=== PATIENT | female | born 1940 | race Caucasian/White ===

== ENCOUNTER 2018-05-06 09:14 | Inpatient (IN) | payer MEDICARE, OTHER ==
[2018-05-06] MEDS ORDERED: Sodium Chloride 0.45% 1,000 ML IV ONE (09:53)
[2018-05-06 10:01] LABS: % BASOPHILS 1.2 % (0.0-2.0); % EOSINOPHILS 0.2 % (0.0-5.0); % LYMPHOCYTES 13.1 % (20.0-50.0); % MONOCYTES 12.6 % (2.0-10.0); % NEUTROPHILS 72.9 % (40.0-80.0); BASOPHILE ABSOLUTE 0.1 Th/cumm (0-0.2); HEMATOCRIT 45.7 % (41.0-60); HEMOGLOBIN 15.2 gm/dL (12-16); LYMPHOCYTE ABSOLUTE 1.1 Th/cmm (1.5-3.0); MEAN CELL VOLUME 93.4 fl (81-100); MEAN CORPUSCULAR HGB CONC 33.2 pg (28.0-36.0); MEAN PLATELET VOLUME 10.9 fl; MONOCYTE ABSOLUTE 1.1 Th/cmm (0.3-1.0); NEUTROPHILE ABSOLUTE 6.4 Th/cmm (1.8-8.0); PLATELET COUNT 111 Th/cmm (150-400); RED BLOOD COUNT 4.89 Mil/cmm (3.80-5.20); RED CELL DISTRIBUTION WIDTH 15.9 % (11.5-20.0); WHITE BLOOD COUNT 8.7 Th/cmm (4.8-10.8)
[2018-05-06 10:12] LABS: INR 1.4 (0.5-1.4); PROTHROMBIN TIME (TEST) 14.8 SECONDS (9.5-11.5)
[2018-05-06 10:17] LABS: ALB/GLOB RATIO 1.5 (1.0-1.8); ALBUMIN 3.8 gm/dL (3.7-5.3); ALKALINE PHOSPHATASE 203 U/L (34-104); ANION GAP 16.7 (7.0-16.0); BILIRUBIN,TOTAL 2.3 mg/dL (0.3-1.0); BUN - UREA NITROGEN 29 mg/dL (7-25); CALCIUM SERUM 9.8 mg/dL (8.6-10.3); CARBON DIOXIDE 19.7 mEq/L (21.0-31.0); CHLORIDE 102 mEq/L (98-107); CREATININE - SERUM 1.1 mg/dL (0.6-1.2); GLUCOSE 90 mg/dL (70-105); POTASSIUM SERUM 4.4 mEq/L (3.5-5.1); SGOT 40 U/L (13-39); SGPT/ALT 33 U/L (7-52); SODIUM SERUM 134 mEq/L (136-145); TOTAL PROTEIN,SERUM 6.3 gm/dL (6.0-8.3)
--- NOTE | 2018-05-06 10:30 | Diagnostic Imaging Report ---
Portable chest x-ray HISTORY: Pain The heart is enlarged. Density noted in the left and to a lesser degree right lower hemithoracic regions consistent bilateral pleural effusions. Atherosclerotic calcification seen in the aorta. Degenerative changes noted throughout the spine. IMPRESSION: 1. Cardiomegaly with bilateral pleural effusions. Findings may be associated with congestive heart failure. Pneumonia cannot be excluded. Clinical correlation is needed.
--- NOTE | 2018-05-06 10:38 | ED Physician Chart ---
ED Chief Complaint/HPI - Patient Information Date Seen:: 05/06/18 Time Seen:: 10:00 Chief Complaint:: ALTERED History of Present Illness:: THIS IS A CHRONICALLY ILL 78 YO FEMALE BIB HER FAMILY FROM HOME WITH A HISTORY OF A STROKE, AFIB, CHF AND CAROTID ARTERY DISEASE. Allergies:: Allergies Allergy/AdvReac Type Severity Reaction Status Date / Time No Known Allergies Allergy Verified 05/06/18 09:44 Vitals:: Vital Signs - 8 hr 05/06/18 09:23 Temp 98.8 F HR 88 RR 20 BP 133/62 O2 Sat % 90 Historian:: Patient, Family Member (SON AND DAUGHTER) Review:: Nurse's Note Reviewed ED Review of Systems - Review of Systems General/Constitutional: No fever, No chills, No weight loss, No weakness, No diaphoresis, No edema, No loss of appetite, Other (THIS PATIENT IS NOT ABLE TO GIVE A REVIEW OF SYSTEMS.) Skin: No skin lesions, No rash, No bruising Head: No headache, No light-headedness Eyes: No loss of vision, No pain, No diplopia ENT: No earache, No nasal drainage, No sore throat, No tinnitus Neck: No neck pain, No swelling, No thyromegaly, No stiffness, No mass noted Cardio Vascular: No chest pain, No palpitations, No PND, No orthopnea, No edema Pulmonary: No SOB, No cough, No sputum, No wheezing GI: No nausea, No vomiting, No diarrhea, No pain, No melena, No hematochezia, No constipation, No hematemesis G/U: No dysuria, No frequency, No hematuria Musculoskeletal: No bone or joint pain, No back pain, No muscle pain Endocrine: No polyuria, No polydipsia Psychiatric: No prior psych history, No depression, No anxiety, No suicidal ideation Hematopoietic: No bruising, No lymphadenopathy Allergic/Immuno: No urticaria, No angioedema Neurological: No syncope, No focal symptoms, No weakness, No paresthesia, No headache, No seizure, No dizziness, No confusion, No vertigo ED Past Medical History - Past Medical History Obtainable: Yes Past Medical History: HTN, CAD, CHF, CVA/TIA, Dyslipidemia Family History: None Social History: Non Smoker, No Alcohol, No Drug Use, Surgical History: other (LEFT UPPER EXTREMITY SURGERY) ED Physical Exam - Physical Examination General/Constitutional: Awake, Well-developed, well-nourished, Alert, No distress, GCS 15, Non-toxic appearing, Ambulatory Other Gen/Cons comments:: ORIENTED BUT LETHARGIC Head: Atraumatic Eyes: Lids, conjuctiva normal, PERRL, EOMI Skin: Nl inspection, No rash, No skin lesions, No ecchymosis, Well hydrated, No lymphadenopathy ENMT: External ears, nose nl, Nasal exam nl, Lips, teeth, gums nl Neck: Nontender, Full ROM w/o pain, No JVD, No nuchal rigidity, No bruit, No mass, No stridor Respiratory: Nl effort/Exclusion, Clear to Auscultation, No Wheeze/Rhonchi/ Rales (BILATERAL RALES WITH INCREASE RESPIRATORY RATE.) Cardio Vascular: RRR, No murmur, gallop, rubs, NL S1 S2 Other Cardio Vascular comments:: TACHYCARDIA GI: No tenderness/rebounding/guarding, No organomegaly, No hernia, Normal BS's, Nondistended, No mass/bruits, No McBurney tenderness : No CVA tenderness Extremities: No tenderness or effusion, Full ROM, normal strength in all extremities, No edema, Normal digits & nails Neuro/Psych: Alert/oriented, DTR's symmetric, Normal sensory exam, Normal motor strength, Judgement/insight normal, Mood normal, Normal gait, No focal deficits Misc: Normal back, No paraspinal tenderness ED Labs/Radiology/EKG Results - Lab Results Results: Laboratory Tests 05/06/18 05/06/18 05/06/18 09:42 09:42 09:42 WBC 8.7 RBC 4.89 Hgb 15.2 Hct 45.7 MCV 93.4 MCH 31.0 MCHC Differential 33.2 RDW 15.9 Plt Count 111 L MPV 10.9 Neutrophils % 72.9 Lymphocytes % 13.1 L Monocytes % 12.6 H Eosinophils % 0.2 Basophils % 1.2 PT 14.8 H INR 1.40 PTT (Actin FS) 32.3 Sodium 134 L Potassium 4.4 Chloride 102 Carbon Dioxide 19.7 L Anion Gap 16.7 H BUN 29 H Creatinine 1.1 Est GFR ( Amer) TNP Est GFR (Non-Af Amer) TNP BUN/Creatinine Ratio 26.4 Glucose 90 Calcium 9.8 Total Bilirubin 2.3 H AST 40 H ALT 33 Alkaline Phosphatase 203 H Troponin I Total Protein 6.3 Albumin 3.8 Globulin 2.5 Albumin/Globulin Ratio 1.5 05/06/18 09:42 WBC RBC Hgb Hct MCV MCH MCHC Differential RDW Plt Count MPV Neutrophils % Lymphocytes % Monocytes % Eosinophils % Basophils % PT INR PTT (Actin FS) Sodium Potassium Chloride Carbon Dioxide Anion Gap BUN Creatinine Est GFR ( Amer) Est GFR (Non-Af Amer) BUN/Creatinine Ratio Glucose Calcium Total Bilirubin AST ALT Alkaline Phosphatase Troponin I 0.13 H* Total Protein Albumin Globulin Albumin/Globulin Ratio ED Assessment - Assessment General Assessment: BILATERAL PLEURAL EFFUSION CHF STATUS POST CVA ED Septic Shock - . Is Septic Shock (SBP<90, OR Lactate>4 mmol\L) present?: No - <6hrs of presentation: Vital Signs: Vital Signs - 8 hr 05/06/18 09:23 Temp 98.8 F HR 88 RR 20 BP 133/62 O2 Sat % 90 ED Reassessment (Disposition) - Reassessment Reassessment Condition:: Improved - Diagnosis Diagnosis:: BILATERAL PLEURAL EFFUSION CHF ELEVATION OF TROPONIN - Patient Disposition Discharge/Transfer:: Acute Care w/in this hosp Admitted to:: Telemetry Admitting Medical Physician:: Ash Puri Condition at Disposition:: Improved ED Discharge Plan - Patient Disposition Admit/Discharge/Transfer: Acute Care w/in this hosp Condition at Disposition: Improved
[2018-05-06] MEDS ORDERED: Albuterol/Ipratropium Neb 3 ML AERS HHN ONE (11:36)
[2018-05-06] MEDS: Albuterol/Ipratropium Neb 3 ML AERS HHN SCH ×3 (11:37→18:36)
--- NOTE | 2018-05-06 11:45 | Diagnostic Imaging Report ---
CT scan of the brain without intravenous contrast HISTORY: Stroke, CVA Total DLP equals 725 CTDI equals 38.9 Axial sections were obtained from the base of the skull the vertex. There is enlargement of the ventricular system along with enlargement of cerebral sulci and subarachnoid cisterns reflecting atrophy. Hypodensity seen within the supratentorial white matter regions that may reflect chronic small vessel ischemic disease. Somewhat more pronounced encephalomalacia noted within the temporal lobe areas. No acute parenchymal abnormalities. No intracerebral hemorrhage. No mass effect or shift of midline structures. No extra-axial masses or abnormal fluid collections. IMPRESSION: 1. Limited exam due to difficulty in patient positioning and extensive artifact associated with metallic dental hardware. 2. No definite acute abnormalities 3. Cerebral atrophy 4. Supratentorial white matter changes that may reflect chronic small vessel ischemic disease
[2018-05-06] MEDS ORDERED: Non-Formulary Item 1 EA (Apixaban [Eliquis] 5 MG) PO SCH (17:00)
[2018-05-06] MEDS: Atorvastatin Calcium 10 MG TAB PO SCH (20:09)
--- NOTE | 2018-05-06 20:59 | History & Physical ---
ADMIT DATE: 05/06/2018 CHIEF COMPLAINT: Multiple fall and shortness of breath. HISTORY OF PRESENT ILLNESS: The patient is an 78-year-old female with long history of hypertension, congestive heart failure, and asthma. She lives at home and presented to the Emergency Room with multiple falls and shortness of breath. Initial workup is significant for acute exacerbation of CHF and left elbow trauma. Denies any chest pain, nausea, or vomiting. PAST MEDICAL HISTORY: Hypertension, congestive heart failure, degenerative joint disease, and asthma. PAST SURGICAL HISTORY: No recent surgery. ALLERGIES: She has no history of allergies. SOCIAL HISTORY: No smoking, no alcohol, and no drugs. FAMILY HISTORY: Noncontributory. REVIEW OF SYSTEMS: RENAL SYSTEM: No history of chronic renal disorder. CARDIOVASCULAR SYSTEM: No coronary artery disease. ENDOCRINE SYSTEM: No diabetes or thyroid problem. GASTROINTESTINAL SYSTEM: No upper or lower gastrointestinal bleed. NEUROLOGICAL: She has history of stroke. PHYSICAL EXAMINATION: GENERAL: She is awake, alert, and oriented. VITAL SIGNS: Temperature 98.8, heart rate 69, and blood pressure 123/70. HEENT: Normocephalic. Pupils are reactive to light and accommodation. Sclerae clear. NECK: Supple. Negative for lymphadenopathy, JVD, or bruit. CHEST: Bilaterally normal. No rhonchi or wheezing. HEART: S1 and S2 normal. No gallop rhythm. ABDOMEN: Soft, bowel sounds positive. EXTREMITIES: No edema. Significant for multiple trauma to the left elbow. NEUROLOGICAL: She is awake, alert, and oriented. No focal motor or sensory deficits. Cranial nerves 2-12 are intact. LABORATORY DATA: White blood cell 8.7, hemoglobin 15.2, hematocrit 45.7, and platelet 111. Sodium 134, potassium 4.4, BUN 29, and creatinine ____. Troponin 0.13. ASSESSMENT: 1. Multiple falls. 2. Soft tissue trauma to the left elbow. 3. Acute exacerbation of congestive heart failure. 4. Chronic atrial fibrillation. 5. Degenerative joint disease. 6. Hypertension. PLAN: The patient admitted to the hospital under Dr. Puri's service, started on cardiac diet, resume her medication IV Lasix. Troponin in a.m. Chem-7 a.m. The patient is a full code. JOB# [id number]
[2018-05-07] MEDS: Albuterol/Ipratropium Neb 3 ML AERS HHN SCH ×4 (02:36→19:10)
[2018-05-07 04:42] LABS: ALB/GLOB RATIO 1.3 (1.0-1.8); ALBUMIN 3.2 gm/dL (3.7-5.3); ALKALINE PHOSPHATASE 170 U/L (34-104); ANION GAP 12.2 (7.0-16.0); BILIRUBIN,TOTAL 1.4 mg/dL (0.3-1.0); BUN - UREA NITROGEN 32 mg/dL (7-25); CALCIUM SERUM 9.4 mg/dL (8.6-10.3); CARBON DIOXIDE 23.7 mEq/L (21.0-31.0); CHLORIDE 104 mEq/L (98-107); CREATININE - SERUM 1.1 mg/dL (0.6-1.2); GLUCOSE 118 mg/dL (70-105); POTASSIUM SERUM 3.9 mEq/L (3.5-5.1); SGOT 29 U/L (13-39); SGPT/ALT 28 U/L (7-52); SODIUM SERUM 136 mEq/L (136-145); TOTAL PROTEIN,SERUM 5.7 gm/dL (6.0-8.3)
[2018-05-07] MEDS: Potassium Chloride 10 mEq ER Tab PO SCH (08:42)
[2018-05-07] MEDS ORDERED: LOSARTAN PO SCH (09:00)
[2018-05-07] MEDS ORDERED: HYDROCHLOROTHIAZIDE PO SCH (09:00)
[2018-05-07] MEDS ORDERED: [UNRECOGNIZED DRUG - OTHER] PO SCH (09:00)
--- NOTE | 2018-05-07 15:48 | Internal Medicine Prog Note ---
Internal Medicine Subjective - Subjective Service Date: 05/07/18 Patient seen and examined:: with staff Patient is:: awake, in bed, talking Patient Complaints of:: SOB Per staff patient has:: no adverse event Internal Medicine Objective - Results Result Diagrams: 05/06/18 09:42 05/07/18 04:05 Recent Labs: Laboratory Last Values WBC 8.7 Th/cmm (4.8-10.8) 05/06/18 09:42 RBC 4.89 Mil/cmm (3.80-5.20) 05/06/18 09:42 Hgb 15.2 gm/dL (12-16) 05/06/18 09:42 Hct 45.7 % (41.0-60) 05/06/18 09:42 MCV 93.4 fl (81-100) 05/06/18 09:42 MCH 31.0 pg (27.0-31.0) 05/06/18 09:42 MCHC Differential 33.2 pg (28.0-36.0) 05/06/18 09:42 RDW 15.9 % (11.5-20.0) 05/06/18 09:42 Plt Count 111 Th/cmm (150-400) L 05/06/18 09:42 MPV 10.9 fl 05/06/18 09:42 Neutrophils % 72.9 % (40.0-80.0) 05/06/18 09:42 Lymphocytes % 13.1 % (20.0-50.0) L 05/06/18 09:42 Monocytes % 12.6 % (2.0-10.0) H 05/06/18 09:42 Eosinophils % 0.2 % (0.0-5.0) 05/06/18 09:42 Basophils % 1.2 % (0.0-2.0) 05/06/18 09:42 PT 14.8 SECONDS (9.5-11.5) H 05/06/18 09:42 INR 1.40 (0.5-1.4) 05/06/18 09:42 PTT (Actin FS) 32.3 SECONDS (26.0-38.0) 05/06/18 09:42 Sodium 136 mEq/L (136-145) 05/07/18 04:05 Potassium 3.9 mEq/L (3.5-5.1) 05/07/18 04:05 Chloride 104 mEq/L (98-107) 05/07/18 04:05 Carbon Dioxide 23.7 mEq/L (21.0-31.0) 05/07/18 04:05 Anion Gap 12.2 (7.0-16.0) 05/07/18 04:05 BUN 32 mg/dL (7-25) H 05/07/18 04:05 Creatinine 1.1 mg/dL (0.6-1.2) 05/07/18 04:05 Est GFR ( Amer) TNP 05/07/18 04:05 Est GFR (Non-Af Amer) TNP 05/07/18 04:05 BUN/Creatinine Ratio 29.1 05/07/18 04:05 Glucose 118 mg/dL (70-105) H 05/07/18 04:05 Calcium 9.4 mg/dL (8.6-10.3) 05/07/18 04:05 Total Bilirubin 1.4 mg/dL (0.3-1.0) H 05/07/18 04:05 AST 29 U/L (13-39) 05/07/18 04:05 ALT 28 U/L (7-52) 05/07/18 04:05 Alkaline Phosphatase 170 U/L (34-104) H 05/07/18 04:05 Troponin I 0.16 ng/mL (0.01-0.05) H* D 05/07/18 04:05 B-Natriuretic Peptide 946.0 pg/mL (5.0-100.0) H 05/07/18 04:30 Total Protein 5.7 gm/dL (6.0-8.3) L 05/07/18 04:05 Albumin 3.2 gm/dL (3.7-5.3) L 05/07/18 04:05 Globulin 2.5 gm/dL 05/07/18 04:05 Albumin/Globulin Ratio 1.3 (1.0-1.8) 05/07/18 04:05 TSH 5.21 uIU/ml (0.34-5.60) 05/06/18 09:42 - Physical Exam Vitals and I&O: Vital Signs Temp 97 F 05/07/18 12:00 Pulse 85 05/07/18 13:56 Resp 18 05/07/18 13:56 BP 130/64 05/07/18 12:00 Pulse Ox 100 05/07/18 13:56 Intake & Output 05/06/18 05/07/18 05/07/18 18:59 06:59 18:59 Intake Total 1250 100 Balance 1250 100 Weight (lbs) 64.41 kg 64.41 kg Intake: Intake, IV Amount 500 Oral 750 100 Other: # Voids 2 2 Weight Source Bedscale Bedscale Active Medications: Current Medications Albuterol/Ipratropium (Duoneb Neb) 3 ml HHN Q6HRT SEE Stop: 07/05/18 12:59 Last Admin: 05/07/18 13:56 Dose: 3 ml Atorvastatin Calcium (Lipitor) 20 mg PO HS SEE Stop: 07/05/18 20:59 Last Admin: 05/06/18 20:09 Dose: 20 mg Escitalopram Oxalate (Lexapro) 10 mg PO DAILY [facility]; Protocol Stop: 07/06/18 08:59 Last Admin: 05/07/18 08:42 Dose: 10 mg Furosemide (Lasix) 20 mg IVP Q12HR SEE Stop: 07/06/18 08:59 Last Admin: 05/07/18 08:45 Dose: 20 mg Hydrochlorothiazide (Hctz) 12.5 mg PO DAILY [facility] Stop: 07/06/18 08:59 Last Admin: 05/07/18 08:45 Dose: 12.5 mg Losartan Potassium (Cozaar) 50 mg PO DAILY SEE Stop: 07/06/18 08:59 Last Admin: 05/07/18 08:43 Dose: 50 mg Memantine (Namenda) 10 mg PO BID [facility] Stop: 07/05/18 16:59 Last Admin: 05/07/18 08:42 Dose: 10 mg Metoprolol Tartrate (Lopressor) 25 mg PO BID [facility] Stop: 07/05/18 16:59 Last Admin: 05/07/18 08:45 Dose: 25 mg Nitroglycerin (Nitrostat) 0.4 mg SL Q5MIN PRN PRN Reason: Chest Pain Stop: 07/05/18 16:25 Potassium Chloride (Klor-Con) 10 meq PO DAILY SEE Stop: 07/06/18 08:59 Last Admin: 05/07/18 08:42 Dose: 10 meq Rivaroxaban (Xarelto) 15 mg PO DAILY@1700 SEE Stop: 07/05/18 16:59 Last Admin: 05/06/18 17:19 Dose: 15 mg General: alert HEENT: NC/AT, PERRLA, EOMI, anicteric sclerae, throat clear Neck: Supple, No JVD, No thyromegaly, +2 carotid pulse wo bruit, No LAD Lungs: CTAB Cardiovascular: Normal S1, Normal S2 Abdomen: non-tender, non-distended Neurological: no change Internal Medicine Assmt/Plan - Assessment Assessment: 1.ACUTE EXACERBATION OF CHF. 2.CHRONIC AFIB. 3.HTN 4.DJD. 5.MULTIPLE FALL - Plan Plan: CONTINUE ON CURRENT MEDICATION AND DIET.CONSULT Ivonne MCKINNEY.
[2018-05-07] MEDS: Atorvastatin Calcium 10 MG TAB PO SCH (20:36)
--- NOTE | 2018-05-07 21:22 | Consultation ---
DATE OF CONSULTATION: 05/07/[address] Puri. HISTORY OF PRESENT ILLNESS: This is an 78-year-old female patient with a history of hypertension, asthma, congestive heart failure, major depression, hyperlipidemia, and thrombocytopenia; had been brought to the Emergency Room with shortness of breath, altered level as well as multiple falls. The patient had a CT scan, which was unremarkable. Following this, the patient is admitted to ICU. The patient has elevated BNP level. PAST MEDICAL HISTORY: Hypertension, multiple falls, asthma, thrombocytopenia, hyperlipidemia, major depression, and osteoporosis. FAMILY HISTORY: Unremarkable. SOCIAL HISTORY: No history of smoking, alcohol abuse. ALLERGIES: No known allergies. PHYSICAL EXAMINATION: VITAL SIGNS: Blood pressure 130/80, pulse 80, and respirations 28. HEAD: Normocephalic. No lumps or bumps. EYES: Pupils equal, reactive to light. Fundi show AV nicking, sclerae white, conjunctivae pink. NECK: Carotid 2+. Normal upstroke. JVD 10 cm above the sternal angle. Thyroid not palpable. Lymph nodes not palpable. CHEST: Shows increased AP diameter. No kyphosis, scoliosis. LUNGS: Bilateral rales. Decreased breath sounds both the bases. HEART: PMI fifth intercostal space with lateral to midclavicular line. S1, S2. No S3, S4, soft systolic murmur. ABDOMEN: Soft. Liver, spleen not palpable. No organomegaly. Bowel sounds active. NEUROLOGIC: Unremarkable. EXTREMITIES: Peripheral pulses 2+. Minimal pedal edema. CLINICAL IMPRESSION: The patient's BNP level 946. Troponin level 0.16. CLINICAL IMPRESSION: Non-ST elevated myocardial infarction, congestive heart failure, diastolic dysfunction, acute bilateral pleural effusion, hypertension, multiple falls. CT scan negative. Asthma, thrombocytopenia, hyperlipidemia, major depression, osteoporosis. PLAN: Admit the patient. We will continue present care and monitor the patient closely. Start on diuretics. Also get an echocardiogram. JOB# [id number]
[2018-05-08] LABS: URINE MICROSCOPIC INDICATED? YES; URINE SOURCE CLEAN C
[2018-05-08 00:02] LABS: URINE BILIRUBIN NEGATIVE (NEGATIVE); URINE BLOOD SMALL (NEGATIVE); URINE GLUCOSE (UA) NEGATIVE (NEGATIVE); URINE KETONE NEGATIVE (NEGATIVE); URINE LEUKOCYTE ESTERASE LARGE (NEGATIVE); URINE NITRATE POSITIVE (NEGATIVE); URINE PH 6.5 (4.6 - 8.0); URINE PROTEIN TRACE mg/dL (NEGATIVE); URINE UROBILINOGEN 0.2 E.U./dL (0.2 - 1.0)
[2018-05-08 00:08] LABS: URINE CLARITY HAZY (CLEAR); URINE COLOR YELLOW
[2018-05-08 00:09] LABS: URINE BACTERIA MANY /hpf (NONE SEEN); URINE EPITHELIAL CELLS FEW /lpf (FEW); URINE WBC 25-50 /hpf (0-5)
[2018-05-08] MEDS: Albuterol/Ipratropium Neb 3 ML AERS HHN SCH ×4 (01:31→19:18)
[2018-05-08 05:05] LABS: ANION GAP 10.5 (7.0-16.0); BUN - UREA NITROGEN 31 mg/dL (7-25); CALCIUM SERUM 9.6 mg/dL (8.6-10.3); CARBON DIOXIDE 28.9 mEq/L (21.0-31.0); CHLORIDE 101 mEq/L (98-107); CREATININE - SERUM 0.9 mg/dL (0.6-1.2); GLUCOSE 99 mg/dL (70-105); POTASSIUM SERUM 3.4 mEq/L (3.5-5.1); SODIUM SERUM 137 mEq/L (136-145)
[2018-05-08] MEDS: Potassium Chloride 10 mEq ER Tab PO SCH (08:11)
--- NOTE | 2018-05-08 08:17 | Diagnostic Imaging Report ---
CHEST X-RAY: AP view INDICATION: CHF COMPARISON: 05/06/2018 FINDINGS: Persistent CHF is seen with small bilateral effusions. Cardiomegaly is noted with atherosclerosis. IMPRESSION: Persistent and CHF with small effusions. Pneumonia of the lung bases cannot be excluded. Cardiomegaly and atherosclerotic vascular disease.
[2018-05-08] MEDS ORDERED: Potassium Chloride 20 mEq ER Tab PO ONE (13:07)
--- NOTE | 2018-05-08 15:16 | Cardiology ---
05/07/2018 ECHOCARDIOGRAM PATIENT OF: Dr. Puri M-MODE ECHOCARDIOGRAM: Mitral valve, anterior leaflet of mitral valve shows normal excursion, EF velocity. Posterior leaflet of the mitral valve shows normal excursion. Left ventricular posterior wall shows increased thickness, normal excursion. Interventricular septum shows increased thickness, normal excursion, hypertrophy of the left ventricle, ejection fraction 50%. Left atrium normal. Aortic root shows normal dimension, normal excursion of aortic leaflets. The patient has pleural effusion. CONCLUSION: Hypertrophy of the left ventricle, ejection fraction 50% with pleural effusion. 2D ECHO: Long axis view showed normal sized left ventricle with hypertrophy of the left ventricle. Left atrium normal. Aortic root shows normal dimension, normal excursion of aortic leaflets. Short axis view of mitral valve normal. Short axis view of aortic valve normal. Apical four chamber view showed normal sized left ventricle, left atrium, right ventricle, right atrium, tricuspid and mitral valve. Ejection fraction 50%. CONCLUSION: Hypertrophy of the left ventricle, ejection fraction 50%. Doppler study shows moderate mitral regurgitation, moderate aortic regurgitation, severe tricuspid regurgitation, right ventricular systolic pressure 41 mmHg, aortic regurgitation pressure half time was 736 milliseconds. JOB# [id number]
[2018-05-08] MEDS ORDERED: VTE Chemical Prophylaxis Screen/Admission MC PRN (16:15)
--- NOTE | 2018-05-08 18:32 | Internal Medicine Prog Note ---
Internal Medicine Subjective - Subjective Service Date: 05/08/18 Patient seen and examined:: with staff (SHE FEELS BETTER,LESS SOB.), without staff Patient is:: awake, in bed, talking Patient Complaints of:: SOB Per staff patient has:: no adverse event Internal Medicine Objective - Results Result Diagrams: 05/06/18 09:42 05/08/18 04:30 Recent Labs: Laboratory Last Values WBC 8.7 Th/cmm (4.8-10.8) 05/06/18 09:42 RBC 4.89 Mil/cmm (3.80-5.20) 05/06/18 09:42 Hgb 15.2 gm/dL (12-16) 05/06/18 09:42 Hct 45.7 % (41.0-60) 05/06/18 09:42 MCV 93.4 fl (81-100) 05/06/18 09:42 MCH 31.0 pg (27.0-31.0) 05/06/18 09:42 MCHC Differential 33.2 pg (28.0-36.0) 05/06/18 09:42 RDW 15.9 % (11.5-20.0) 05/06/18 09:42 Plt Count 111 Th/cmm (150-400) L 05/06/18 09:42 MPV 10.9 fl 05/06/18 09:42 Neutrophils % 72.9 % (40.0-80.0) 05/06/18 09:42 Lymphocytes % 13.1 % (20.0-50.0) L 05/06/18 09:42 Monocytes % 12.6 % (2.0-10.0) H 05/06/18 09:42 Eosinophils % 0.2 % (0.0-5.0) 05/06/18 09:42 Basophils % 1.2 % (0.0-2.0) 05/06/18 09:42 PT 14.8 SECONDS (9.5-11.5) H 05/06/18 09:42 INR 1.40 (0.5-1.4) 05/06/18 09:42 PTT (Actin FS) 32.3 SECONDS (26.0-38.0) 05/06/18 09:42 Sodium 137 mEq/L (136-145) 05/08/18 04:30 Potassium 3.4 mEq/L (3.5-5.1) L 05/08/18 04:30 Chloride 101 mEq/L (98-107) 05/08/18 04:30 Carbon Dioxide 28.9 mEq/L (21.0-31.0) 05/08/18 04:30 Anion Gap 10.5 (7.0-16.0) 05/08/18 04:30 BUN 31 mg/dL (7-25) H 05/08/18 04:30 Creatinine 0.9 mg/dL (0.6-1.2) 05/08/18 04:30 Est GFR ( Amer) TNP 05/08/18 04:30 Est GFR (Non-Af Amer) TNP 05/08/18 04:30 BUN/Creatinine Ratio 34.4 05/08/18 04:30 Glucose 99 mg/dL (70-105) 05/08/18 04:30 Calcium 9.6 mg/dL (8.6-10.3) 05/08/18 04:30 Total Bilirubin 1.4 mg/dL (0.3-1.0) H 05/07/18 04:05 AST 29 U/L (13-39) 05/07/18 04:05 ALT 28 U/L (7-52) 05/07/18 04:05 Alkaline Phosphatase 170 U/L (34-104) H 05/07/18 04:05 Troponin I 0.16 ng/mL (0.01-0.05) H* D 05/07/18 04:05 B-Natriuretic Peptide 683.0 pg/mL (5.0-100.0) H 05/08/18 04:30 Total Protein 5.7 gm/dL (6.0-8.3) L 05/07/18 04:05 Albumin 3.2 gm/dL (3.7-5.3) L 05/07/18 04:05 Globulin 2.5 gm/dL 05/07/18 04:05 Albumin/Globulin Ratio 1.3 (1.0-1.8) 05/07/18 04:05 TSH 5.21 uIU/ml (0.34-5.60) 05/06/18 09:42 Urine Source CLEAN C 05/07/18 20:30 Urine Color YELLOW 05/07/18 20:30 Urine Clarity HAZY (CLEAR) 05/07/18 20:30 Urine pH 6.5 (4.6 - 8.0) 05/07/18 20:30 Ur Specific [place] 1.010 (1.005-1.030) 05/07/18 20:30 Urine Protein TRACE mg/dL (NEGATIVE) 05/07/18 20:30 Urine Glucose (UA) NEGATIVE mg/dL (NEGATIVE) 05/07/18 20:30 Urine Ketones NEGATIVE mg/dL (NEGATIVE) 05/07/18 20:30 Urine Blood SMALL (NEGATIVE) H 05/07/18 20:30 Urine Nitrate POSITIVE (NEGATIVE) H 05/07/18 20:30 Urine Bilirubin NEGATIVE (NEGATIVE) 05/07/18 20:30 Urine Urobilinogen 0.2 E.U./dL (0.2 - 1.0) 05/07/18 20:30 Ur Leukocyte Esterase LARGE (NEGATIVE) H 05/07/18 20:30 Urine RBC 2-5 /hpf (0-5) 05/07/18 20:30 Urine WBC 25-50 /hpf (0-5) H 05/07/18 20:30 Ur Epithelial Cells FEW /lpf (FEW) 05/07/18 20:30 Urine Bacteria MANY /hpf (NONE SEEN) H 05/07/18 20:30 - Physical Exam Vitals and I&O: Vital Signs Temp 97.8 F 05/08/18 18:00 Pulse 82 05/08/18 18:00 Resp 21 05/08/18 18:00 BP 127/65 05/08/18 18:00 Pulse Ox 100 05/08/18 18:00 Intake & Output 05/07/18 05/08/18 05/08/18 18:59 06:59 18:59 Intake Total 830 50 880 Balance 830 50 880 Weight (lbs) 62.596 kg 62.596 kg 62.397 kg Intake: Oral 830 50 880 Other: # Voids 4 5 7 # Bowel Movements 1 0 Weight Source Bedscale Bedscale Bedscale Active Medications: Current Medications Albuterol/Ipratropium (Duoneb Neb) 3 ml HHN Q6HRT SEE Stop: 07/05/18 12:59 Last Admin: 05/08/18 12:31 Dose: 3 ml Atorvastatin Calcium (Lipitor) 20 mg PO HS [facility] Stop: 07/05/18 20:59 Last Admin: 05/07/18 20:36 Dose: 20 mg Escitalopram Oxalate (Lexapro) 10 mg PO DAILY [facility]; Protocol Stop: 07/06/18 08:59 Last Admin: 05/08/18 08:10 Dose: 10 mg Furosemide (Lasix) 40 mg IVP Q12HR SEE Stop: 07/06/18 20:59 Last Admin: 05/08/18 08:11 Dose: 40 mg Hydrochlorothiazide (Hctz) 12.5 mg PO DAILY [facility] Stop: 07/06/18 08:59 Last Admin: 05/08/18 08:10 Dose: 12.5 mg Losartan Potassium (Cozaar) 50 mg PO DAILY [facility] Stop: 07/06/18 08:59 Last Admin: 05/08/18 08:09 Dose: 50 mg Memantine (Namenda) 10 mg PO BID [facility] Stop: 07/05/18 16:59 Last Admin: 05/08/18 16:41 Dose: 10 mg Metoprolol Tartrate (Lopressor) 25 mg PO BID [facility] Stop: 07/05/18 16:59 Last Admin: 05/08/18 16:41 Dose: Not Given Miscellaneous (Vte Chemical Prophylaxis Screen/ Admission) 1 ea [facility] PRN PRN PRN Reason: PROTOCOL Stop: 07/07/18 16:14 Nitroglycerin (Nitrostat) 0.4 mg SL Q5MIN PRN PRN Reason: Chest Pain Stop: 07/05/18 16:25 Potassium Chloride (Klor-Con) 10 meq PO DAILY [facility] Stop: 07/06/18 08:59 Last Admin: 05/08/18 08:11 Dose: 10 meq Rivaroxaban (Xarelto) 15 mg PO DAILY@1700 [facility] Stop: 07/05/18 16:59 Last Admin: 05/08/18 16:41 Dose: 15 mg General: alert HEENT: NC/AT, PERRLA, EOMI, anicteric sclerae, throat clear Neck: Supple, No JVD, No thyromegaly, +2 carotid pulse wo bruit, No LAD Lungs: CTAB Cardiovascular: Normal S1, Normal S2 Abdomen: non-tender, non-distended Neurological: no change Internal Medicine Assmt/Plan - Assessment Assessment: 1.ACUTE EXACERBATION OF CHF. 2.CHRONIC AFIB. 3.HTN 4.DJD. 5.MULTIPLE FALL - Plan Plan: CONTINUE ON CURRENT MEDICATION AND DIET.
[2018-05-08] MEDS: Atorvastatin Calcium 10 MG TAB PO SCH (20:22)
[2018-05-09] MEDS: Albuterol/Ipratropium Neb 3 ML AERS HHN SCH ×4 (01:29→19:22)
[2018-05-09 04:35] LABS: % BASOPHILS 1.7 % (0.0-2.0); % LYMPHOCYTES 16.7 % (20.0-50.0); % NEUTROPHILS 63.6 % (40.0-80.0); BASOPHILE ABSOLUTE 0.1 Th/cumm (0-0.2); EOSINOPHILE ABSOLUTE 0.3 Th/cmm (0.1-0.4); HEMATOCRIT 44.5 % (41.0-60); HEMOGLOBIN 14.4 gm/dL (12-16); LYMPHOCYTE ABSOLUTE 1.3 Th/cmm (1.5-3.0); MEAN CELL VOLUME 95.8 fl (81-100); MEAN CORPUSCULAR HEMOGLOBIN 30.9 pg (27.0-31.0); MEAN CORPUSCULAR HGB CONC 32.3 pg (28.0-36.0); MEAN PLATELET VOLUME 10.7 fl; MONOCYTE ABSOLUTE 1.1 Th/cmm (0.3-1.0); PLATELET COUNT 114 Th/cmm (150-400); RED BLOOD COUNT 4.65 Mil/cmm (3.80-5.20); RED CELL DISTRIBUTION WIDTH 15.9 % (11.5-20.0); WHITE BLOOD COUNT 7.8 Th/cmm (4.8-10.8)
[2018-05-09 04:51] LABS: ANION GAP 10.4 (7.0-16.0); BUN - UREA NITROGEN 30 mg/dL (7-25); CALCIUM SERUM 9.3 mg/dL (8.6-10.3); CARBON DIOXIDE 32.9 mEq/L (21.0-31.0); CHLORIDE 96 mEq/L (98-107); CREATININE - SERUM 0.9 mg/dL (0.6-1.2); GLUCOSE 112 mg/dL (70-105); POTASSIUM SERUM 3.3 mEq/L (3.5-5.1); SODIUM SERUM 136 mEq/L (136-145)
[2018-05-09] MEDS ORDERED: Potassium Chloride 20 mEq ER Tab PO ONE (08:28)
[2018-05-09] MEDS: Potassium Chloride 10 mEq ER Tab PO SCH (08:43)
[2018-05-09] MEDS: Therahoney Gel 42.5gm Tube TP SCH (16:50)
[2018-05-09] MEDS: Atorvastatin Calcium 10 MG TAB PO SCH (20:38)
--- NOTE | 2018-05-09 21:29 | Internal Medicine Prog Note ---
Internal Medicine Subjective - Subjective Service Date: 05/09/18 Patient seen and examined:: with staff (SHE HAS CONSTIPATION.SHE DENUIES ANY CHEST PAIN) Patient is:: awake, in bed, talking Patient Complaints of:: SOB Per staff patient has:: no adverse event Internal Medicine Objective - Results Result Diagrams: 05/09/18 04:10 05/09/18 04:10 Recent Labs: Laboratory Last Values WBC 7.8 Th/cmm (4.8-10.8) 05/09/18 04:10 RBC 4.65 Mil/cmm (3.80-5.20) 05/09/18 04:10 Hgb 14.4 gm/dL (12-16) 05/09/18 04:10 Hct 44.5 % (41.0-60) 05/09/18 04:10 MCV 95.8 fl (81-100) 05/09/18 04:10 MCH 30.9 pg (27.0-31.0) 05/09/18 04:10 MCHC Differential 32.3 pg (28.0-36.0) 05/09/18 04:10 RDW 15.9 % (11.5-20.0) 05/09/18 04:10 Plt Count 114 Th/cmm (150-400) L 05/09/18 04:10 MPV 10.7 fl 05/09/18 04:10 Neutrophils % 63.6 % (40.0-80.0) 05/09/18 04:10 Lymphocytes % 16.7 % (20.0-50.0) L 05/09/18 04:10 Monocytes % 14.0 % (2.0-10.0) H 05/09/18 04:10 Eosinophils % 4.0 % (0.0-5.0) 05/09/18 04:10 Basophils % 1.7 % (0.0-2.0) 05/09/18 04:10 PT 14.8 SECONDS (9.5-11.5) H 05/06/18 09:42 INR 1.40 (0.5-1.4) 05/06/18 09:42 PTT (Actin FS) 32.3 SECONDS (26.0-38.0) 05/06/18 09:42 Sodium 136 mEq/L (136-145) 05/09/18 04:10 Potassium 3.3 mEq/L (3.5-5.1) L 05/09/18 04:10 Chloride 96 mEq/L (98-107) L 05/09/18 04:10 Carbon Dioxide 32.9 mEq/L (21.0-31.0) H 05/09/18 04:10 Anion Gap 10.4 (7.0-16.0) 05/09/18 04:10 BUN 30 mg/dL (7-25) H 05/09/18 04:10 Creatinine 0.9 mg/dL (0.6-1.2) 05/09/18 04:10 Est GFR ( Amer) TNP 05/09/18 04:10 Est GFR (Non-Af Amer) TNP 05/09/18 04:10 BUN/Creatinine Ratio 33.3 05/09/18 04:10 Glucose 112 mg/dL (70-105) H 05/09/18 04:10 POC Glucose 90 MG/DL (70-105) 05/06/18 09:28 Calcium 9.3 mg/dL (8.6-10.3) 05/09/18 04:10 Total Bilirubin 1.4 mg/dL (0.3-1.0) H 05/07/18 04:05 AST 29 U/L (13-39) 05/07/18 04:05 ALT 28 U/L (7-52) 05/07/18 04:05 Alkaline Phosphatase 170 U/L (34-104) H 05/07/18 04:05 Troponin I 0.16 ng/mL (0.01-0.05) H* D 05/07/18 04:05 B-Natriuretic Peptide 720.0 pg/mL (5.0-100.0) H 05/09/18 04:10 Total Protein 5.7 gm/dL (6.0-8.3) L 05/07/18 04:05 Albumin 3.2 gm/dL (3.7-5.3) L 05/07/18 04:05 Globulin 2.5 gm/dL 05/07/18 04:05 Albumin/Globulin Ratio 1.3 (1.0-1.8) 05/07/18 04:05 TSH 5.21 uIU/ml (0.34-5.60) 05/06/18 09:42 Urine Source CLEAN C 05/07/18 20:30 Urine Color YELLOW 05/07/18 20:30 Urine Clarity HAZY (CLEAR) 05/07/18 20:30 Urine pH 6.5 (4.6 - 8.0) 05/07/18 20:30 Ur Specific [place] 1.010 (1.005-1.030) 05/07/18 20:30 Urine Protein TRACE mg/dL (NEGATIVE) 05/07/18 20:30 Urine Glucose (UA) NEGATIVE mg/dL (NEGATIVE) 05/07/18 20:30 Urine Ketones NEGATIVE mg/dL (NEGATIVE) 05/07/18 20:30 Urine Blood SMALL (NEGATIVE) H 05/07/18 20:30 Urine Nitrate POSITIVE (NEGATIVE) H 05/07/18 20:30 Urine Bilirubin NEGATIVE (NEGATIVE) 05/07/18 20:30 Urine Urobilinogen 0.2 E.U./dL (0.2 - 1.0) 05/07/18 20:30 Ur Leukocyte Esterase LARGE (NEGATIVE) H 05/07/18 20:30 Urine RBC 2-5 /hpf (0-5) 05/07/18 20:30 Urine WBC 25-50 /hpf (0-5) H 05/07/18 20:30 Ur Epithelial Cells FEW /lpf (FEW) 05/07/18 20:30 Urine Bacteria MANY /hpf (NONE SEEN) H 05/07/18 20:30 - Physical Exam Vitals and I&O: Vital Signs Temp 98.8 F 05/09/18 17:20 Pulse 80 05/09/18 19:22 Resp 20 05/09/18 19:22 BP 108/54 05/09/18 20:54 Pulse Ox 97 05/09/18 19:22 Intake & Output 05/09/18 05/09/18 05/10/18 06:59 18:59 06:59 Intake Total 100 950 Balance 100 950 Weight (lbs) 61.689 kg 61.944 kg Intake: Oral 100 950 Other: # Voids 5 5 # Bowel Movements 0 Weight Source Bedscale Bedscale Active Medications: Current Medications Albuterol/Ipratropium (Duoneb Neb) 3 ml HHN Q6HRT SEE Stop: 07/05/18 12:59 Last Admin: 05/09/18 19:22 Dose: 3 ml Atorvastatin Calcium (Lipitor) 20 mg PO HS [facility] Stop: 07/05/18 20:59 Last Admin: 05/09/18 20:38 Dose: 20 mg Docusate Sodium (Colace) 100 mg PO DAILY [facility] Stop: 07/09/18 08:59 Escitalopram Oxalate (Lexapro) 10 mg PO DAILY [facility]; Protocol Stop: 07/06/18 08:59 Last Admin: 05/09/18 08:43 Dose: 10 mg Furosemide (Lasix) 40 mg IVP Q12HR SEE Stop: 07/06/18 20:59 Last Admin: 05/09/18 20:54 Dose: 40 mg Hydrochlorothiazide (Hctz) 12.5 mg PO DAILY SEE Stop: 07/06/18 08:59 Last Admin: 05/09/18 08:45 Dose: 12.5 mg Losartan Potassium (Cozaar) 50 mg PO DAILY [facility] Stop: 07/06/18 08:59 Last Admin: 05/09/18 08:44 Dose: 50 mg Magnesium Hydroxide (Milk Of Magnesia) 30 ml PO HS PRN PRN Reason: Constipation Stop: 07/08/18 21:22 Memantine (Namenda) 10 mg PO BID [facility] Stop: 07/05/18 16:59 Last Admin: 05/09/18 16:33 Dose: 10 mg Metoprolol Tartrate (Lopressor) 25 mg PO BID [facility] Stop: 07/05/18 16:59 Last Admin: 05/09/18 16:30 Dose: 25 mg Miscellaneous (Vte Chemical Prophylaxis Screen/ Admission) 1 ea [facility] PRN PRN PRN Reason: PROTOCOL Stop: 07/07/18 16:14 Nitroglycerin (Nitrostat) 0.4 mg SL Q5MIN PRN PRN Reason: Chest Pain Stop: 07/05/18 16:25 Potassium Chloride (Klor-Con) 10 meq PO DAILY [facility] Stop: 07/06/18 08:59 Last Admin: 05/09/18 08:43 Dose: 10 meq Rivaroxaban (Xarelto) 15 mg PO DAILY@1700 [facility] Stop: 07/05/18 16:59 Last Admin: 05/09/18 16:33 Dose: 15 mg Senna (Senna) 8.6 mg PO DAILY [facility] Stop: 07/09/18 08:59 Wound Care/Dressing Products (Therahoney) 1 appl TP DAILY SEE Stop: 07/08/18 16:44 General: alert HEENT: NC/AT, PERRLA, EOMI, anicteric sclerae, throat clear Neck: Supple, No JVD, No thyromegaly, +2 carotid pulse wo bruit, No LAD Lungs: CTAB Cardiovascular: Normal S1, Normal S2 Abdomen: non-tender, non-distended Neurological: no change Internal Medicine Assmt/Plan - Assessment Assessment: 1.ACUTE EXACERBATION OF CHF. 2.CHRONIC AFIB. 3.HTN 4.DJD. 5.MULTIPLE FALL 6.CONSTIPATION. - Plan Plan: CONTINUE ON CURRENT MEDICATION AND DIET.SENEKOT 2 TAB. PO AT BED TIME.
[2018-05-09] MEDS: Magnesium Hydroxide (MOM) 30 mL UDC PO PRN (21:50)
[2018-05-10] MEDS: Albuterol/Ipratropium Neb 3 ML AERS HHN SCH ×4 (00:10→19:22)
[2018-05-10 06:19] LABS: % BASOPHILS 0.9 % (0.0-2.0); % EOSINOPHILS 3.9 % (0.0-5.0); % LYMPHOCYTES 16.6 % (20.0-50.0); % NEUTROPHILS 64.6 % (40.0-80.0); BASOPHILE ABSOLUTE 0.1 Th/cumm (0-0.2); EOSINOPHILE ABSOLUTE 0.3 Th/cmm (0.1-0.4); HEMATOCRIT 46.6 % (41.0-60); LYMPHOCYTE ABSOLUTE 1.1 Th/cmm (1.5-3.0); MEAN CELL VOLUME 95.8 fl (81-100); MEAN CORPUSCULAR HEMOGLOBIN 30.9 pg (27.0-31.0); MEAN CORPUSCULAR HGB CONC 32.2 pg (28.0-36.0); MEAN PLATELET VOLUME 10.5 fl; NEUTROPHILE ABSOLUTE 4.3 Th/cmm (1.8-8.0); PLATELET COUNT 115 Th/cmm (150-400); RED BLOOD COUNT 4.87 Mil/cmm (3.80-5.20); WHITE BLOOD COUNT 6.8 Th/cmm (4.8-10.8)
[2018-05-10 06:45] LABS: ANION GAP 9.5 (7.0-16.0); BUN - UREA NITROGEN 27 mg/dL (7-25); CALCIUM SERUM 9.4 mg/dL (8.6-10.3); CHLORIDE 95 mEq/L (98-107); CREATININE - SERUM 0.8 mg/dL (0.6-1.2); GLUCOSE 103 mg/dL (70-105); POTASSIUM SERUM 3.5 mEq/L (3.5-5.1); SODIUM SERUM 135 mEq/L (136-145)
[2018-05-10] MEDS: Potassium Chloride 10 mEq ER Tab PO SCH (08:57)
[2018-05-10] MEDS: Therahoney Gel 42.5gm Tube TP SCH (11:13)
--- NOTE | 2018-05-10 20:49 | Internal Medicine Prog Note ---
Internal Medicine Subjective - Subjective Service Date: 05/10/18 Patient seen and examined:: with staff (SHE FEELS BETTER,LESS SOB.) Patient is:: awake, in bed, talking Patient Complaints of:: SOB Per staff patient has:: no adverse event Internal Medicine Objective - Results Result Diagrams: 05/10/18 05:20 05/10/18 05:20 Recent Labs: Laboratory Last Values WBC 6.8 Th/cmm (4.8-10.8) 05/10/18 05:20 RBC 4.87 Mil/cmm (3.80-5.20) 05/10/18 05:20 Hgb 15.0 gm/dL (12-16) 05/10/18 05:20 Hct 46.6 % (41.0-60) 05/10/18 05:20 MCV 95.8 fl (81-100) 05/10/18 05:20 MCH 30.9 pg (27.0-31.0) 05/10/18 05:20 MCHC Differential 32.2 pg (28.0-36.0) 05/10/18 05:20 RDW 16.0 % (11.5-20.0) 05/10/18 05:20 Plt Count 115 Th/cmm (150-400) L 05/10/18 05:20 MPV 10.5 fl 05/10/18 05:20 Neutrophils % 64.6 % (40.0-80.0) 05/10/18 05:20 Lymphocytes % 16.6 % (20.0-50.0) L 05/10/18 05:20 Monocytes % 14.0 % (2.0-10.0) H 05/10/18 05:20 Eosinophils % 3.9 % (0.0-5.0) 05/10/18 05:20 Basophils % 0.9 % (0.0-2.0) 05/10/18 05:20 PT 14.8 SECONDS (9.5-11.5) H 05/06/18 09:42 INR 1.40 (0.5-1.4) 05/06/18 09:42 PTT (Actin FS) 32.3 SECONDS (26.0-38.0) 05/06/18 09:42 Sodium 135 mEq/L (136-145) L 05/10/18 05:20 Potassium 3.5 mEq/L (3.5-5.1) 05/10/18 05:20 Chloride 95 mEq/L (98-107) L 05/10/18 05:20 Carbon Dioxide 34.0 mEq/L (21.0-31.0) H 05/10/18 05:20 Anion Gap 9.5 (7.0-16.0) 05/10/18 05:20 BUN 27 mg/dL (7-25) H 05/10/18 05:20 Creatinine 0.8 mg/dL (0.6-1.2) 05/10/18 05:20 Est GFR ( Amer) TNP 05/10/18 05:20 Est GFR (Non-Af Amer) TNP 05/10/18 05:20 BUN/Creatinine Ratio 33.8 05/10/18 05:20 Glucose 103 mg/dL (70-105) 05/10/18 05:20 POC Glucose 90 MG/DL (70-105) 05/06/18 09:28 Calcium 9.4 mg/dL (8.6-10.3) 05/10/18 05:20 Total Bilirubin 1.4 mg/dL (0.3-1.0) H 05/07/18 04:05 AST 29 U/L (13-39) 05/07/18 04:05 ALT 28 U/L (7-52) 05/07/18 04:05 Alkaline Phosphatase 170 U/L (34-104) H 05/07/18 04:05 Troponin I 0.16 ng/mL (0.01-0.05) H* D 05/07/18 04:05 B-Natriuretic Peptide 846.0 pg/mL (5.0-100.0) H 05/10/18 05:20 Total Protein 5.7 gm/dL (6.0-8.3) L 05/07/18 04:05 Albumin 3.2 gm/dL (3.7-5.3) L 05/07/18 04:05 Globulin 2.5 gm/dL 05/07/18 04:05 Albumin/Globulin Ratio 1.3 (1.0-1.8) 05/07/18 04:05 TSH 5.21 uIU/ml (0.34-5.60) 05/06/18 09:42 Urine Source CLEAN C 05/07/18 20:30 Urine Color YELLOW 05/07/18 20:30 Urine Clarity HAZY (CLEAR) 05/07/18 20:30 Urine pH 6.5 (4.6 - 8.0) 05/07/18 20:30 Ur Specific [place] 1.010 (1.005-1.030) 05/07/18 20:30 Urine Protein TRACE mg/dL (NEGATIVE) 05/07/18 20:30 Urine Glucose (UA) NEGATIVE mg/dL (NEGATIVE) 05/07/18 20:30 Urine Ketones NEGATIVE mg/dL (NEGATIVE) 05/07/18 20:30 Urine Blood SMALL (NEGATIVE) H 05/07/18 20:30 Urine Nitrate POSITIVE (NEGATIVE) H 05/07/18 20:30 Urine Bilirubin NEGATIVE (NEGATIVE) 05/07/18 20:30 Urine Urobilinogen 0.2 E.U./dL (0.2 - 1.0) 05/07/18 20:30 Ur Leukocyte Esterase LARGE (NEGATIVE) H 05/07/18 20:30 Urine RBC 2-5 /hpf (0-5) 05/07/18 20:30 Urine WBC 25-50 /hpf (0-5) H 05/07/18 20:30 Ur Epithelial Cells FEW /lpf (FEW) 05/07/18 20:30 Urine Bacteria MANY /hpf (NONE SEEN) H 05/07/18 20:30 - Physical Exam Vitals and I&O: Vital Signs Temp 97.4 F 05/10/18 16:12 Pulse 67 05/10/18 19:22 Resp 18 05/10/18 19:22 BP 95/51 05/10/18 20:45 Pulse Ox 98 05/10/18 19:22 Intake & Output 05/10/18 05/10/18 05/11/18 06:59 18:59 06:59 Intake Total 100 Balance 100 Weight (lbs) 61.235 kg 61.235 kg Intake: Oral 100 Other: # Voids 4 # Bowel Movements 0 Weight Source Bedscale Bedscale Active Medications: Current Medications Albuterol/Ipratropium (Duoneb Neb) 3 ml HHN Q6HRT SEE Stop: 07/05/18 12:59 Last Admin: 05/10/18 19:22 Dose: 3 ml Atorvastatin Calcium (Lipitor) 20 mg PO HS SEE Stop: 07/05/18 20:59 Last Admin: 05/09/18 20:38 Dose: 20 mg Docusate Sodium (Colace) 100 mg PO DAILY [facility] Stop: 07/09/18 08:59 Last Admin: 05/10/18 08:57 Dose: 100 mg Escitalopram Oxalate (Lexapro) 10 mg PO DAILY [facility]; Protocol Stop: 07/06/18 08:59 Last Admin: 05/10/18 08:56 Dose: 10 mg Furosemide (Lasix) 40 mg IVP Q12HR SEE Stop: 07/06/18 20:59 Last Admin: 05/10/18 08:58 Dose: 40 mg Hydrochlorothiazide (Hctz) 12.5 mg PO DAILY [facility] Stop: 07/06/18 08:59 Last Admin: 05/10/18 08:56 Dose: 12.5 mg Levofloxacin (Levaquin) 250 mg PO DAILY [facility] Stop: 05/15/18 09:01 Losartan Potassium (Cozaar) 50 mg PO DAILY [facility] Stop: 07/06/18 08:59 Last Admin: 05/10/18 08:57 Dose: 50 mg Magnesium Hydroxide (Milk Of Magnesia) 30 ml PO HS PRN PRN Reason: Constipation Stop: 07/08/18 21:22 Last Admin: 05/09/18 21:50 Dose: 30 ml Memantine (Namenda) 10 mg PO BID [facility] Stop: 07/05/18 16:59 Last Admin: 05/10/18 16:29 Dose: 10 mg Metoprolol Tartrate (Lopressor) 25 mg PO BID [facility] Stop: 07/05/18 16:59 Last Admin: 05/10/18 16:29 Dose: 25 mg Miscellaneous (Vte Chemical Prophylaxis Screen/ Admission) 1 ea [facility] PRN PRN PRN Reason: PROTOCOL Stop: 07/07/18 16:14 Nitroglycerin (Nitrostat) 0.4 mg SL Q5MIN PRN PRN Reason: Chest Pain Stop: 07/05/18 16:25 Potassium Chloride (Klor-Con) 10 meq PO DAILY [facility] Stop: 07/06/18 08:59 Last Admin: 05/10/18 08:57 Dose: 10 meq Rivaroxaban (Xarelto) 15 mg PO DAILY@1700 [facility] Stop: 07/05/18 16:59 Last Admin: 05/10/18 16:29 Dose: 15 mg Senna (Senna) 8.6 mg PO DAILY SEE Stop: 07/09/18 08:59 Last Admin: 05/10/18 08:57 Dose: 8.6 mg Wound Care/Dressing Products (Therahoney) 1 appl TP DAILY SEE Stop: 07/08/18 16:44 Last Admin: 05/10/18 11:13 Dose: 1 appl General: alert HEENT: NC/AT, PERRLA, EOMI, anicteric sclerae, throat clear Neck: Supple, No JVD, No thyromegaly, +2 carotid pulse wo bruit, No LAD Lungs: CTAB Cardiovascular: Normal S1, Normal S2 Abdomen: non-tender, non-distended Neurological: no change Internal Medicine Assmt/Plan - Assessment Assessment: 1.ACUTE EXACERBATION OF CHF. 2.CHRONIC AFIB. 3.HTN 4.DJD. 5.MULTIPLE FALL 6.CONSTIPATION. - Plan Plan: CONTINUE ON CURRENT MEDICATION AND DIET Nutritional Asmnt/Malnutr-PDOC - Dietary Evaluation Malnutrition Findings (Please click <Entered> for more info): Nutritional Asmnt/Malnutrition Start: 05/10/18 17: 51 Text: Status: Complete Freq: Protocol: Document 05/10/18 17:58 LCHENG (Rec: 05/10/18 18:06 REDD [email or web address]) Nutritional Asmnt/Malnutrition Patient General Information Nutritional Screening Moderate Risk Diagnosis CHF exacerbation Pertinent Medical Hx/Surgical Hx HTN, CHF, DJD, asthma Subjective Information Pt seen sitting up in bed having lunch at time of visit. Pt stated appetite fine as usual. Per EMR, PO intake 75- 100%. Current Diet Order/ Nutrition Support cardiac Pertinent Medications colace, lasix, levaquin, kcl, senna Pertinent Labs 05/10 na 135, Cl 95, BUN 27, glucose 103 Nutritional Hx/Data Height 1.52 m Height (Calculated Centimeters) 152.4 Current Weight (lbs) 61.235 kg Weight (Calculated Kilograms) 61.2 Weight (Calculated Grams) 53414.0 [place] Body Weight 100 Body Mass Index (BMI) 26.4 Weight Status Overweight GI Symptoms GI Symptoms Constipation Last BM 78 constipated per EMR Difficult in: None Skin Integrity/Comment: 1~2+ pitting edema Current %PO Good (75-100%) Estimated Nutritional Goals BEE in Kcals: Using Current wt Calories/Kcals/Kg 23-27 Kcals Calculated 8385-6005 Protein: Using Current wt Protein g/k Protein Calculated 61 Fluid: ml fluid restriction per MD 1500ml Nutritional Problem 1. Problem Problem altered nutrition related labs Etiology electrolytes imbalance Signs/Symptoms: Na 135, Cl 95 Malnutrition Alert Is there a minimum of two criteria No selected? Query Text:Check all the applicable criteria. A minimum of two criteria are recommended for diagnosis of either severe or non-severe malnutrition. Malnutrition Related to Morbid Obesity Malnutrition related to morbid obesity No Intervention/Recommendation Comments 1. Continue with cardiac diet wtih fluid restriction as ordered. 2. Monitor PO intake, wt, labs and skin integrity 3. F/U as moderate risk in 3-5 days, 05/13-05/15 Expected Outcomes/Goals Expected Outcomes/Goals 1. PO intake to meet at least 75% of nutritional needs. 2. Wt stability, skin to remain intact, labs to approach WNL.
[2018-05-10] MEDS: Atorvastatin Calcium 10 MG TAB PO SCH (21:04)
[2018-05-10] MEDS: Magnesium Hydroxide (MOM) 30 mL UDC PO PRN (21:05)
[2018-05-11] MEDS: Albuterol/Ipratropium Neb 3 ML AERS HHN SCH ×4 (07:02→19:45)
[2018-05-11 10:27] VITALS: BP 127/70
[2018-05-11] MEDS: Potassium Chloride 10 mEq ER Tab PO SCH (10:33)
[2018-05-11] MEDS: Therahoney Gel 42.5gm Tube TP SCH (10:34)
[2018-05-11] MEDS: Atorvastatin Calcium 10 MG TAB PO SCH (21:14)
--- NOTE | 2018-05-11 23:16 | Internal Medicine Prog Note ---
Internal Medicine Subjective - Subjective Service Date: 05/11/18 Patient seen and examined:: with staff (SHE FEELS BETTER) Patient is:: awake, in bed, talking Patient Complaints of:: SOB Per staff patient has:: no adverse event Internal Medicine Objective - Results Result Diagrams: 05/10/18 05:20 05/10/18 05:20 Recent Labs: Laboratory Last Values WBC 6.8 Th/cmm (4.8-10.8) 05/10/18 05:20 RBC 4.87 Mil/cmm (3.80-5.20) 05/10/18 05:20 Hgb 15.0 gm/dL (12-16) 05/10/18 05:20 Hct 46.6 % (41.0-60) 05/10/18 05:20 MCV 95.8 fl (81-100) 05/10/18 05:20 MCH 30.9 pg (27.0-31.0) 05/10/18 05:20 MCHC Differential 32.2 pg (28.0-36.0) 05/10/18 05:20 RDW 16.0 % (11.5-20.0) 05/10/18 05:20 Plt Count 115 Th/cmm (150-400) L 05/10/18 05:20 MPV 10.5 fl 05/10/18 05:20 Neutrophils % 64.6 % (40.0-80.0) 05/10/18 05:20 Lymphocytes % 16.6 % (20.0-50.0) L 05/10/18 05:20 Monocytes % 14.0 % (2.0-10.0) H 05/10/18 05:20 Eosinophils % 3.9 % (0.0-5.0) 05/10/18 05:20 Basophils % 0.9 % (0.0-2.0) 05/10/18 05:20 PT 14.8 SECONDS (9.5-11.5) H 05/06/18 09:42 INR 1.40 (0.5-1.4) 05/06/18 09:42 PTT (Actin FS) 32.3 SECONDS (26.0-38.0) 05/06/18 09:42 Sodium 135 mEq/L (136-145) L 05/10/18 05:20 Potassium 3.5 mEq/L (3.5-5.1) 05/10/18 05:20 Chloride 95 mEq/L (98-107) L 05/10/18 05:20 Carbon Dioxide 34.0 mEq/L (21.0-31.0) H 05/10/18 05:20 Anion Gap 9.5 (7.0-16.0) 05/10/18 05:20 BUN 27 mg/dL (7-25) H 05/10/18 05:20 Creatinine 0.8 mg/dL (0.6-1.2) 05/10/18 05:20 Est GFR ( Amer) TNP 05/10/18 05:20 Est GFR (Non-Af Amer) TNP 05/10/18 05:20 BUN/Creatinine Ratio 33.8 05/10/18 05:20 Glucose 103 mg/dL (70-105) 05/10/18 05:20 POC Glucose 90 MG/DL (70-105) 05/06/18 09:28 Calcium 9.4 mg/dL (8.6-10.3) 05/10/18 05:20 Total Bilirubin 1.4 mg/dL (0.3-1.0) H 05/07/18 04:05 AST 29 U/L (13-39) 05/07/18 04:05 ALT 28 U/L (7-52) 05/07/18 04:05 Alkaline Phosphatase 170 U/L (34-104) H 05/07/18 04:05 Troponin I 0.16 ng/mL (0.01-0.05) H* D 05/07/18 04:05 B-Natriuretic Peptide 846.0 pg/mL (5.0-100.0) H 05/10/18 05:20 Total Protein 5.7 gm/dL (6.0-8.3) L 05/07/18 04:05 Albumin 3.2 gm/dL (3.7-5.3) L 05/07/18 04:05 Globulin 2.5 gm/dL 05/07/18 04:05 Albumin/Globulin Ratio 1.3 (1.0-1.8) 05/07/18 04:05 TSH 5.21 uIU/ml (0.34-5.60) 05/06/18 09:42 Urine Source CLEAN C 05/07/18 20:30 Urine Color YELLOW 05/07/18 20:30 Urine Clarity HAZY (CLEAR) 05/07/18 20:30 Urine pH 6.5 (4.6 - 8.0) 05/07/18 20:30 Ur Specific [place] 1.010 (1.005-1.030) 05/07/18 20:30 Urine Protein TRACE mg/dL (NEGATIVE) 05/07/18 20:30 Urine Glucose (UA) NEGATIVE mg/dL (NEGATIVE) 05/07/18 20:30 Urine Ketones NEGATIVE mg/dL (NEGATIVE) 05/07/18 20:30 Urine Blood SMALL (NEGATIVE) H 05/07/18 20:30 Urine Nitrate POSITIVE (NEGATIVE) H 05/07/18 20:30 Urine Bilirubin NEGATIVE (NEGATIVE) 05/07/18 20:30 Urine Urobilinogen 0.2 E.U./dL (0.2 - 1.0) 05/07/18 20:30 Ur Leukocyte Esterase LARGE (NEGATIVE) H 05/07/18 20:30 Urine RBC 2-5 /hpf (0-5) 05/07/18 20:30 Urine WBC 25-50 /hpf (0-5) H 05/07/18 20:30 Ur Epithelial Cells FEW /lpf (FEW) 05/07/18 20:30 Urine Bacteria MANY /hpf (NONE SEEN) H 05/07/18 20:30 - Physical Exam Vitals and I&O: Vital Signs Temp 96.5 F 05/11/18 18:07 Pulse 74 05/11/18 19:46 Resp 18 05/11/18 19:46 BP 98/61 05/11/18 18:07 Pulse Ox 98 05/11/18 19:46 Intake & Output 05/11/18 05/11/18 05/12/18 06:59 18:59 06:59 Intake Total 240 Balance 240 Weight (lbs) 62.324 kg 61.915 kg Intake: Oral 240 Other: # Voids 3 # Bowel Movements 1 1 Weight Source Bedscale Bedscale Active Medications: Current Medications Albuterol/Ipratropium (Duoneb Neb) 3 ml HHN Q6HRT SEE Stop: 07/05/18 12:59 Last Admin: 05/11/18 19:45 Dose: 3 ml Atorvastatin Calcium (Lipitor) 20 mg PO HS SEE Stop: 07/05/18 20:59 Last Admin: 05/11/18 21:14 Dose: 20 mg Docusate Sodium (Colace) 100 mg PO DAILY [facility] Stop: 07/09/18 08:59 Last Admin: 05/11/18 10:31 Dose: 100 mg Escitalopram Oxalate (Lexapro) 10 mg PO DAILY [facility]; Protocol Stop: 07/06/18 08:59 Last Admin: 05/11/18 10:31 Dose: 10 mg Furosemide (Lasix) 40 mg IVP Q12HR [facility] Stop: 07/06/18 20:59 Last Admin: 05/11/18 10:34 Dose: 40 mg Hydrochlorothiazide (Hctz) 12.5 mg PO DAILY [facility] Stop: 07/06/18 08:59 Last Admin: 05/11/18 10:32 Dose: 12.5 mg Levofloxacin (Levaquin) 250 mg PO DAILY [facility] Stop: 05/15/18 09:01 Last Admin: 05/11/18 10:33 Dose: 250 mg Losartan Potassium (Cozaar) 50 mg PO DAILY [facility] Stop: 07/06/18 08:59 Last Admin: 05/11/18 10:34 Dose: 50 mg Magnesium Hydroxide (Milk Of Magnesia) 30 ml PO HS PRN PRN Reason: Constipation Stop: 07/08/18 21:22 Last Admin: 05/10/18 21:05 Dose: 30 ml Memantine (Namenda) 10 mg PO BID [facility] Stop: 07/05/18 16:59 Last Admin: 05/11/18 17:29 Dose: 10 mg Metoprolol Tartrate (Lopressor) 25 mg PO BID [facility] Stop: 07/05/18 16:59 Last Admin: 05/11/18 17:28 Dose: Not Given Miscellaneous (Vte Chemical Prophylaxis Screen/ Admission) 1 ea MC PRN PRN PRN Reason: PROTOCOL Stop: 07/07/18 16:14 Nitroglycerin (Nitrostat) 0.4 mg SL Q5MIN PRN PRN Reason: Chest Pain Stop: 07/05/18 16:25 Potassium Chloride (Klor-Con) 10 meq PO DAILY [facility] Stop: 07/06/18 08:59 Last Admin: 05/11/18 10:33 Dose: 10 meq Rivaroxaban (Xarelto) 15 mg PO DAILY@1700 [facility] Stop: 07/05/18 16:59 Last Admin: 05/11/18 17:30 Dose: 15 mg Senna (Senna) 8.6 mg PO DAILY [facility] Stop: 07/09/18 08:59 Last Admin: 05/11/18 10:32 Dose: 8.6 mg Wound Care/Dressing Products (Therahoney) 1 appl TP DAILY [facility] Stop: 07/08/18 16:44 Last Admin: 05/11/18 10:34 Dose: 1 appl General: alert HEENT: NC/AT, PERRLA, EOMI, anicteric sclerae, throat clear Neck: Supple, No JVD, No thyromegaly, +2 carotid pulse wo bruit, No LAD Lungs: CTAB Cardiovascular: Normal S1, Normal S2 Abdomen: non-tender, non-distended Neurological: no change Internal Medicine Assmt/Plan - Assessment Assessment: 1.ACUTE EXACERBATION OF CHF. 2.CHRONIC AFIB. 3.HTN 4.DJD. 5.MULTIPLE FALL 6.CONSTIPATION. - Plan Plan: CONTINUE ON CURRENT MEDICATION AND DIET Nutritional Asmnt/Malnutr-PDOC - Dietary Evaluation Malnutrition Findings (Please click <Entered> for more info): Nutritional Asmnt/Malnutrition Start: 05/10/18 17: 51 Text: Status: Complete Freq: Protocol: Document 05/10/18 17:58 LCHENG (Rec: 05/10/18 18:06 [email or web address]) Nutritional Asmnt/Malnutrition Patient General Information Nutritional Screening Moderate Risk Diagnosis CHF exacerbation Pertinent Medical Hx/Surgical Hx HTN, CHF, DJD, asthma Subjective Information Pt seen sitting up in bed having lunch at time of visit. Pt stated appetite fine as usual. Per EMR, PO intake 75- 100%. Current Diet Order/ Nutrition Support cardiac Pertinent Medications colace, lasix, levaquin, kcl, senna Pertinent Labs 05/10 na 135, Cl 95, BUN 27, glucose 103 Nutritional Hx/Data Height 1.52 m Height (Calculated Centimeters) 152.4 Current Weight (lbs) 61.235 kg Weight (Calculated Kilograms) 61.2 Weight (Calculated Grams) 83809.0 [place] Body Weight 100 Body Mass Index (BMI) 26.4 Weight Status Overweight GI Symptoms GI Symptoms Constipation Last BM 7/8 constipated per EMR Difficult in: None Skin Integrity/Comment: 1~2+ pitting edema Current %PO Good (75-100%) Estimated Nutritional Goals BEE in Kcals: Using Current wt Calories/Kcals/Kg 23-27 Kcals Calculated 6659-1141 Protein: Using Current wt Protein g/k Protein Calculated 61 Fluid: ml fluid restriction per MD 1500ml Nutritional Problem 1. Problem Problem altered nutrition related labs Etiology electrolytes imbalance Signs/Symptoms: Na 135, Cl 95 Malnutrition Alert Is there a minimum of two criteria No selected? Query Text:Check all the applicable criteria. A minimum of two criteria are recommended for diagnosis of either severe or non-severe malnutrition. Malnutrition Related to Morbid Obesity Malnutrition related to morbid obesity No Intervention/Recommendation Comments 1. Continue with cardiac diet wtih fluid restriction as ordered. 2. Monitor PO intake, wt, labs and skin integrity 3. F/U as moderate risk in 3-5 days, 05/13-05/15 Expected Outcomes/Goals Expected Outcomes/Goals 1. PO intake to meet at least 75% of nutritional needs. 2. Wt stability, skin to remain intact, labs to approach WNL.
[2018-05-12] MEDS: Albuterol/Ipratropium Neb 3 ML AERS HHN SCH ×4 (07:26→19:51)
[2018-05-12] MEDS: Potassium Chloride 10 mEq ER Tab PO SCH (08:25)
[2018-05-12] MEDS: Therahoney Gel 42.5gm Tube TP SCH (08:28)
[2018-05-12] MEDS ORDERED: Probiotic Screen MC PRN (13:44)
--- NOTE | 2018-05-12 19:38 | Internal Medicine Prog Note ---
Internal Medicine Subjective - Subjective Service Date: 05/12/18 Patient is:: awake, in bed, talking Patient Complaints of:: SOB Per staff patient has:: no adverse event Internal Medicine Objective - Results Result Diagrams: 05/10/18 05:20 05/10/18 05:20 Recent Labs: Laboratory Last Values WBC 6.8 Th/cmm (4.8-10.8) 05/10/18 05:20 RBC 4.87 Mil/cmm (3.80-5.20) 05/10/18 05:20 Hgb 15.0 gm/dL (12-16) 05/10/18 05:20 Hct 46.6 % (41.0-60) 05/10/18 05:20 MCV 95.8 fl (81-100) 05/10/18 05:20 MCH 30.9 pg (27.0-31.0) 05/10/18 05:20 MCHC Differential 32.2 pg (28.0-36.0) 05/10/18 05:20 RDW 16.0 % (11.5-20.0) 05/10/18 05:20 Plt Count 115 Th/cmm (150-400) L 05/10/18 05:20 MPV 10.5 fl 05/10/18 05:20 Neutrophils % 64.6 % (40.0-80.0) 05/10/18 05:20 Lymphocytes % 16.6 % (20.0-50.0) L 05/10/18 05:20 Monocytes % 14.0 % (2.0-10.0) H 05/10/18 05:20 Eosinophils % 3.9 % (0.0-5.0) 05/10/18 05:20 Basophils % 0.9 % (0.0-2.0) 05/10/18 05:20 PT 14.8 SECONDS (9.5-11.5) H 05/06/18 09:42 INR 1.40 (0.5-1.4) 05/06/18 09:42 PTT (Actin FS) 32.3 SECONDS (26.0-38.0) 05/06/18 09:42 Sodium 135 mEq/L (136-145) L 05/10/18 05:20 Potassium 3.5 mEq/L (3.5-5.1) 05/10/18 05:20 Chloride 95 mEq/L (98-107) L 05/10/18 05:20 Carbon Dioxide 34.0 mEq/L (21.0-31.0) H 05/10/18 05:20 Anion Gap 9.5 (7.0-16.0) 05/10/18 05:20 BUN 27 mg/dL (7-25) H 05/10/18 05:20 Creatinine 0.8 mg/dL (0.6-1.2) 05/10/18 05:20 Est GFR ( Amer) TNP 05/10/18 05:20 Est GFR (Non-Af Amer) TNP 05/10/18 05:20 BUN/Creatinine Ratio 33.8 05/10/18 05:20 Glucose 103 mg/dL (70-105) 05/10/18 05:20 POC Glucose 90 MG/DL (70-105) 05/06/18 09:28 Calcium 9.4 mg/dL (8.6-10.3) 05/10/18 05:20 Total Bilirubin 1.4 mg/dL (0.3-1.0) H 05/07/18 04:05 AST 29 U/L (13-39) 05/07/18 04:05 ALT 28 U/L (7-52) 05/07/18 04:05 Alkaline Phosphatase 170 U/L (34-104) H 05/07/18 04:05 Troponin I 0.16 ng/mL (0.01-0.05) H* D 05/07/18 04:05 B-Natriuretic Peptide 846.0 pg/mL (5.0-100.0) H 05/10/18 05:20 Total Protein 5.7 gm/dL (6.0-8.3) L 05/07/18 04:05 Albumin 3.2 gm/dL (3.7-5.3) L 05/07/18 04:05 Globulin 2.5 gm/dL 05/07/18 04:05 Albumin/Globulin Ratio 1.3 (1.0-1.8) 05/07/18 04:05 TSH 5.21 uIU/ml (0.34-5.60) 05/06/18 09:42 Urine Source CLEAN C 05/07/18 20:30 Urine Color YELLOW 05/07/18 20:30 Urine Clarity HAZY (CLEAR) 05/07/18 20:30 Urine pH 6.5 (4.6 - 8.0) 05/07/18 20:30 Ur Specific [place] 1.010 (1.005-1.030) 05/07/18 20:30 Urine Protein TRACE mg/dL (NEGATIVE) 05/07/18 20:30 Urine Glucose (UA) NEGATIVE mg/dL (NEGATIVE) 05/07/18 20:30 Urine Ketones NEGATIVE mg/dL (NEGATIVE) 05/07/18 20:30 Urine Blood SMALL (NEGATIVE) H 05/07/18 20:30 Urine Nitrate POSITIVE (NEGATIVE) H 05/07/18 20:30 Urine Bilirubin NEGATIVE (NEGATIVE) 05/07/18 20:30 Urine Urobilinogen 0.2 E.U./dL (0.2 - 1.0) 05/07/18 20:30 Ur Leukocyte Esterase LARGE (NEGATIVE) H 05/07/18 20:30 Urine RBC 2-5 /hpf (0-5) 05/07/18 20:30 Urine WBC 25-50 /hpf (0-5) H 05/07/18 20:30 Ur Epithelial Cells FEW /lpf (FEW) 05/07/18 20:30 Urine Bacteria MANY /hpf (NONE SEEN) H 05/07/18 20:30 - Physical Exam Vitals and I&O: Vital Signs Temp 97.4 F 05/12/18 16:09 Pulse 76 05/12/18 16:40 Resp 18 05/12/18 16:09 BP 121/60 05/12/18 16:40 Pulse Ox 98 05/12/18 16:09 Intake & Output 05/12/18 05/12/18 05/13/18 06:59 18:59 06:59 Intake Total 200 1000 Output Total 300 Balance -100 1000 Weight (lbs) 62.596 kg 60.146 kg Intake: Oral 200 1000 Output: Urine 300 Other: # Voids 3 # Bowel Movements 1 Weight Source Bedscale Bedscale Active Medications: Current Medications Albuterol/Ipratropium (Duoneb Neb) 3 ml HHN Q6HRT SEE Stop: 07/05/18 12:59 Last Admin: 05/12/18 13:58 Dose: 3 ml Atorvastatin Calcium (Lipitor) 20 mg PO HS SEE Stop: 07/05/18 20:59 Last Admin: 05/11/18 21:14 Dose: 20 mg Docusate Sodium (Colace) 100 mg PO DAILY SEE Stop: 07/09/18 08:59 Last Admin: 05/12/18 08:27 Dose: 100 mg Escitalopram Oxalate (Lexapro) 10 mg PO DAILY [facility]; Protocol Stop: 07/06/18 08:59 Last Admin: 05/12/18 08:27 Dose: 10 mg Furosemide (Lasix) 40 mg IVP Q12HR SEE Stop: 07/06/18 20:59 Last Admin: 05/12/18 08:27 Dose: 40 mg Hydrochlorothiazide (Hctz) 12.5 mg PO DAILY [facility] Stop: 07/06/18 08:59 Last Admin: 05/12/18 08:25 Dose: 12.5 mg Lactobacillus Rhamnosus (Culturelle 15b) 1 each PO DAILY [facility] Stop: 07/12/18 08:59 Levofloxacin (Levaquin) 250 mg PO DAILY [facility] Stop: 05/15/18 09:01 Last Admin: 05/12/18 08:24 Dose: 250 mg Losartan Potassium (Cozaar) 50 mg PO DAILY [facility] Stop: 07/06/18 08:59 Last Admin: 05/12/18 08:27 Dose: 50 mg Magnesium Hydroxide (Milk Of Magnesia) 30 ml PO HS PRN PRN Reason: Constipation Stop: 07/08/18 21:22 Last Admin: 05/10/18 21:05 Dose: 30 ml Memantine (Namenda) 10 mg PO BID [facility] Stop: 07/05/18 16:59 Last Admin: 05/12/18 16:40 Dose: 10 mg Metoprolol Tartrate (Lopressor) 25 mg PO BID [facility] Stop: 07/05/18 16:59 Last Admin: 05/12/18 16:40 Dose: 25 mg Miscellaneous (Vte Chemical Prophylaxis Screen/ Admission) 1 ea MC PRN PRN PRN Reason: PROTOCOL Stop: 07/07/18 16:14 Miscellaneous (Probiotic Screen) 1 ea MC PRN PRN PRN Reason: PROTOCOL Stop: 07/11/18 13:43 Nitroglycerin (Nitrostat) 0.4 mg SL Q5MIN PRN PRN Reason: Chest Pain Stop: 07/05/18 16:25 Potassium Chloride (Klor-Con) 10 meq PO DAILY [facility] Stop: 07/06/18 08:59 Last Admin: 05/12/18 08:25 Dose: 10 meq Rivaroxaban (Xarelto) 15 mg PO DAILY@1700 [facility] Stop: 07/05/18 16:59 Last Admin: 05/12/18 16:40 Dose: 15 mg Senna (Senna) 8.6 mg PO DAILY SEE Stop: 07/09/18 08:59 Last Admin: 05/12/18 08:26 Dose: 8.6 mg Wound Care/Dressing Products (Therahoney) 1 appl TP DAILY [facility] Stop: 07/08/18 16:44 Last Admin: 05/12/18 08:28 Dose: 1 appl General: alert HEENT: NC/AT, PERRLA, EOMI, anicteric sclerae, throat clear Neck: Supple, No JVD, No thyromegaly, +2 carotid pulse wo bruit, No LAD Lungs: CTAB Cardiovascular: Normal S1, Normal S2 Abdomen: non-tender, non-distended Neurological: no change Internal Medicine Assmt/Plan - Assessment Assessment: 1.ACUTE EXACERBATION OF CHF. 2.CHRONIC AFIB. 3.HTN 4.DJD. 5.MULTIPLE FALL 6.CONSTIPATION. - Plan Plan: CONTINUE ON CURRENT MEDICATION AND DIET Nutritional Asmnt/Malnutr-PDOC - Dietary Evaluation Malnutrition Findings (Please click <Entered> for more info): Nutritional Asmnt/Malnutrition Start: 05/10/18 17: 51 Text: Status: Complete Freq: Protocol: Document 05/10/18 17:58 [email or web address] (Rec: 05/10/18 18:06 [email or web address]) Nutritional Asmnt/Malnutrition Patient General Information Nutritional Screening Moderate Risk Diagnosis CHF exacerbation Pertinent Medical Hx/Surgical Hx HTN, CHF, DJD, asthma Subjective Information Pt seen sitting up in bed having lunch at time of visit. Pt stated appetite fine as usual. Per EMR, PO intake 75- 100%. Current Diet Order/ Nutrition Support cardiac Pertinent Medications colace, lasix, levaquin, kcl, senna Pertinent Labs 05/10 na 135, Cl 95, BUN 27, glucose 103 Nutritional Hx/Data Height 1.52 m Height (Calculated Centimeters) 152.4 Current Weight (lbs) 61.235 kg Weight (Calculated Kilograms) 61.2 Weight (Calculated Grams) 31692.0 [place] Body Weight 100 Body Mass Index (BMI) 26.4 Weight Status Overweight GI Symptoms GI Symptoms Constipation Last BM 7/8 constipated per EMR Difficult in: None Skin Integrity/Comment: 1~2+ pitting edema Current %PO Good (75-100%) Estimated Nutritional Goals BEE in Kcals: Using Current wt Calories/Kcals/Kg 23-27 Kcals Calculated 3046-8490 Protein: Using Current wt Protein g/k Protein Calculated 61 Fluid: ml fluid restriction per MD 1500ml Nutritional Problem 1. Problem Problem altered nutrition related labs Etiology electrolytes imbalance Signs/Symptoms: Na 135, Cl 95 Malnutrition Alert Is there a minimum of two criteria No selected? Query Text:Check all the applicable criteria. A minimum of two criteria are recommended for diagnosis of either severe or non-severe malnutrition. Malnutrition Related to Morbid Obesity Malnutrition related to morbid obesity No Intervention/Recommendation Comments 1. Continue with cardiac diet wtih fluid restriction as ordered. 2. Monitor PO intake, wt, labs and skin integrity 3. F/U as moderate risk in 3-5 days, 05/13-05/15 Expected Outcomes/Goals Expected Outcomes/Goals 1. PO intake to meet at least 75% of nutritional needs. 2. Wt stability, skin to remain intact, labs to approach WNL.
[2018-05-12] MEDS: Atorvastatin Calcium 10 MG TAB PO SCH (20:43)
[2018-05-13] MEDS: Albuterol/Ipratropium Neb 3 ML AERS HHN SCH ×4 (06:33→19:24)
[2018-05-13 06:40] LABS: ANION GAP 9.5 (7.0-16.0); BUN - UREA NITROGEN 22 mg/dL (7-25); CALCIUM SERUM 9.2 mg/dL (8.6-10.3); CARBON DIOXIDE 34.3 mEq/L (21.0-31.0); CHLORIDE 94 mEq/L (98-107); CREATININE - SERUM 0.7 mg/dL (0.6-1.2); GLUCOSE 115 mg/dL (70-105); SODIUM SERUM 135 mEq/L (136-145)
[2018-05-13 07:08] LABS: POTASSIUM SERUM 2.8 mEq/L (3.5-5.1)
[2018-05-13] MEDS ORDERED: Potassium Chloride 20 mEq ER Tab PO ONE (07:52)
[2018-05-13] MEDS ORDERED: Potassium Chloride 40 MEQ, Lidocaine 1% 20mL Vial 25 MG in Sodium Chloride 0.9% 250 ML IV ONE (07:53)
[2018-05-13] MEDS: KCL 20mEq/100mL Premix 40 MEQ/200 ML PIGGYBACK IV SCH ×2 (09:20→11:36)
[2018-05-13] MEDS: Potassium Chloride 10 mEq ER Tab PO SCH (09:26)
[2018-05-13] MEDS: Lactobacillus Rhamnosus GG 15 Billion CFU CAP.SPRINK PO SCH (09:27)
[2018-05-13] MEDS: Therahoney Gel 42.5gm Tube TP SCH (16:54)
--- NOTE | 2018-05-13 20:31 | Internal Medicine Prog Note ---
Internal Medicine Subjective - Subjective Service Date: 05/13/18 Patient is:: awake (SHE FEELS BETTER), in bed, talking Patient Complaints of:: SOB Per staff patient has:: no adverse event Internal Medicine Objective - Results Result Diagrams: 05/10/18 05:20 05/13/18 04:55 Recent Labs: Laboratory Last Values WBC 6.8 Th/cmm (4.8-10.8) 05/10/18 05:20 RBC 4.87 Mil/cmm (3.80-5.20) 05/10/18 05:20 Hgb 15.0 gm/dL (12-16) 05/10/18 05:20 Hct 46.6 % (41.0-60) 05/10/18 05:20 MCV 95.8 fl (81-100) 05/10/18 05:20 MCH 30.9 pg (27.0-31.0) 05/10/18 05:20 MCHC Differential 32.2 pg (28.0-36.0) 05/10/18 05:20 RDW 16.0 % (11.5-20.0) 05/10/18 05:20 Plt Count 115 Th/cmm (150-400) L 05/10/18 05:20 MPV 10.5 fl 05/10/18 05:20 Neutrophils % 64.6 % (40.0-80.0) 05/10/18 05:20 Lymphocytes % 16.6 % (20.0-50.0) L 05/10/18 05:20 Monocytes % 14.0 % (2.0-10.0) H 05/10/18 05:20 Eosinophils % 3.9 % (0.0-5.0) 05/10/18 05:20 Basophils % 0.9 % (0.0-2.0) 05/10/18 05:20 PT 14.8 SECONDS (9.5-11.5) H 05/06/18 09:42 INR 1.40 (0.5-1.4) 05/06/18 09:42 PTT (Actin FS) 32.3 SECONDS (26.0-38.0) 05/06/18 09:42 Sodium 135 mEq/L (136-145) L 05/13/18 04:55 Potassium 2.8 mEq/L (3.5-5.1) L* 05/13/18 04:55 Chloride 94 mEq/L (98-107) L 05/13/18 04:55 Carbon Dioxide 34.3 mEq/L (21.0-31.0) H 05/13/18 04:55 Anion Gap 9.5 (7.0-16.0) 05/13/18 04:55 BUN 22 mg/dL (7-25) 05/13/18 04:55 Creatinine 0.7 mg/dL (0.6-1.2) 05/13/18 04:55 Est GFR ( Amer) TNP 05/13/18 04:55 Est GFR (Non-Af Amer) TNP 05/13/18 04:55 BUN/Creatinine Ratio 31.4 05/13/18 04:55 Glucose 115 mg/dL (70-105) H 05/13/18 04:55 POC Glucose 90 MG/DL (70-105) 05/06/18 09:28 Calcium 9.2 mg/dL (8.6-10.3) 05/13/18 04:55 Total Bilirubin 1.4 mg/dL (0.3-1.0) H 05/07/18 04:05 AST 29 U/L (13-39) 05/07/18 04:05 ALT 28 U/L (7-52) 05/07/18 04:05 Alkaline Phosphatase 170 U/L (34-104) H 05/07/18 04:05 Troponin I 0.16 ng/mL (0.01-0.05) H* D 05/07/18 04:05 B-Natriuretic Peptide 883.0 pg/mL (5.0-100.0) H 05/13/18 04:55 Total Protein 5.7 gm/dL (6.0-8.3) L 05/07/18 04:05 Albumin 3.2 gm/dL (3.7-5.3) L 05/07/18 04:05 Globulin 2.5 gm/dL 05/07/18 04:05 Albumin/Globulin Ratio 1.3 (1.0-1.8) 05/07/18 04:05 TSH 5.21 uIU/ml (0.34-5.60) 05/06/18 09:42 Urine Source CLEAN C 05/07/18 20:30 Urine Color YELLOW 05/07/18 20:30 Urine Clarity HAZY (CLEAR) 05/07/18 20:30 Urine pH 6.5 (4.6 - 8.0) 05/07/18 20:30 Ur Specific [place] 1.010 (1.005-1.030) 05/07/18 20:30 Urine Protein TRACE mg/dL (NEGATIVE) 05/07/18 20:30 Urine Glucose (UA) NEGATIVE mg/dL (NEGATIVE) 05/07/18 20:30 Urine Ketones NEGATIVE mg/dL (NEGATIVE) 05/07/18 20:30 Urine Blood SMALL (NEGATIVE) H 05/07/18 20:30 Urine Nitrate POSITIVE (NEGATIVE) H 05/07/18 20:30 Urine Bilirubin NEGATIVE (NEGATIVE) 05/07/18 20:30 Urine Urobilinogen 0.2 E.U./dL (0.2 - 1.0) 05/07/18 20:30 Ur Leukocyte Esterase LARGE (NEGATIVE) H 05/07/18 20:30 Urine RBC 2-5 /hpf (0-5) 05/07/18 20:30 Urine WBC 25-50 /hpf (0-5) H 05/07/18 20:30 Ur Epithelial Cells FEW /lpf (FEW) 05/07/18 20:30 Urine Bacteria MANY /hpf (NONE SEEN) H 05/07/18 20:30 - Physical Exam Vitals and I&O: Vital Signs Temp 97.0 F 05/13/18 16:40 Pulse 72 05/13/18 19:25 Resp 18 05/13/18 19:25 BP 110/69 05/13/18 16:54 Pulse Ox 98 05/13/18 19:25 Intake & Output 05/13/18 05/13/18 05/14/18 06:59 18:59 06:59 Intake Total 1250 413.333 Balance 1250 413.333 Weight (lbs) 59.959 kg 59.874 kg Intake: Intake, IV Amount 113.333 KCL 20mEq/100mL Premix 40 113.333 meq In 200 ml @ 50 mls/ hr IV Q2H [facility] Rx#: [id number] Oral 1250 300 Other: # Voids 4 # Bowel Movements 0 Weight Source Bedscale Bedscale Active Medications: Current Medications Albuterol/Ipratropium (Duoneb Neb) 3 ml HHN Q6HRT SEE Stop: 07/05/18 12:59 Last Admin: 05/13/18 19:24 Dose: 3 ml Atorvastatin Calcium (Lipitor) 20 mg PO HS SEE Stop: 07/05/18 20:59 Last Admin: 05/12/18 20:43 Dose: 20 mg Docusate Sodium (Colace) 100 mg PO DAILY SEE Stop: 07/09/18 08:59 Last Admin: 05/13/18 09:26 Dose: 100 mg Escitalopram Oxalate (Lexapro) 10 mg PO DAILY [facility]; Protocol Stop: 07/06/18 08:59 Last Admin: 05/13/18 09:28 Dose: 10 mg Furosemide (Lasix) 40 mg IVP Q12HR SEE Stop: 07/06/18 20:59 Last Admin: 05/13/18 09:29 Dose: 40 mg Hydrochlorothiazide (Hctz) 12.5 mg PO DAILY [facility] Stop: 07/06/18 08:59 Last Admin: 05/13/18 09:27 Dose: 12.5 mg Lactobacillus Rhamnosus (Culturelle 15b) 1 each PO DAILY SEE Stop: 07/12/18 08:59 Last Admin: 05/13/18 09:27 Dose: 1 each Levofloxacin (Levaquin) 250 mg PO DAILY [facility] Stop: 05/15/18 09:01 Last Admin: 05/13/18 09:28 Dose: 250 mg Losartan Potassium (Cozaar) 50 mg PO DAILY [facility] Stop: 07/06/18 08:59 Last Admin: 05/13/18 09:29 Dose: Not Given Magnesium Hydroxide (Milk Of Magnesia) 30 ml PO HS PRN PRN Reason: Constipation Stop: 07/08/18 21:22 Last Admin: 05/10/18 21:05 Dose: 30 ml Memantine (Namenda) 10 mg PO BID [facility] Stop: 07/05/18 16:59 Last Admin: 05/13/18 16:54 Dose: 10 mg Metoprolol Tartrate (Lopressor) 25 mg PO BID [facility] Stop: 07/05/18 16:59 Last Admin: 05/13/18 16:54 Dose: 25 mg Miscellaneous (Vte Chemical Prophylaxis Screen/ Admission) 1 ea PRN PRN PRN Reason: PROTOCOL Stop: 07/07/18 16:14 Miscellaneous (Probiotic Screen) 1 ea MC PRN PRN PRN Reason: PROTOCOL Stop: 07/11/18 13:43 Nitroglycerin (Nitrostat) 0.4 mg SL Q5MIN PRN PRN Reason: Chest Pain Stop: 07/05/18 16:25 Potassium Chloride (Klor-Con) 10 meq PO DAILY SEE Stop: 07/06/18 08:59 Last Admin: 05/13/18 09:26 Dose: Not Given Rivaroxaban (Xarelto) 15 mg PO DAILY@1700 SEE Stop: 07/05/18 16:59 Last Admin: 05/13/18 16:53 Dose: 15 mg Senna (Senna) 8.6 mg PO DAILY SEE Stop: 07/09/18 08:59 Last Admin: 05/13/18 09:28 Dose: 8.6 mg Wound Care/Dressing Products (Therahoney) 1 appl TP DAILY [facility] Stop: 07/08/18 16:44 Last Admin: 05/13/18 16:54 Dose: 1 appl General: alert HEENT: NC/AT, PERRLA, EOMI, anicteric sclerae, throat clear Neck: Supple, No JVD, No thyromegaly, +2 carotid pulse wo bruit, No LAD Lungs: CTAB Cardiovascular: Normal S1, Normal S2 Abdomen: non-tender, non-distended Neurological: no change Internal Medicine Assmt/Plan - Assessment Assessment: 1.ACUTE EXACERBATION OF CHF. 2.CHRONIC AFIB. 3.HTN 4.DJD. 5.MULTIPLE FALL 6.CONSTIPATION. - Plan Plan: CONTINUE ON CURRENT MEDICATION AND DIET. KCL 40 MEQ PO.CMP IN AM. Nutritional Asmnt/Malnutr-PDOC - Dietary Evaluation Malnutrition Findings (Please click <Entered> for more info): Nutritional Asmnt/Malnutrition Start: 05/10/18 17: 51 Text: Status: Complete Freq: Protocol: Document 05/10/18 17:58 [email or web address] (Rec: 05/10/18 18:06 REDD [email or web address]) Nutritional Asmnt/Malnutrition Patient General Information Nutritional Screening Moderate Risk Diagnosis CHF exacerbation Pertinent Medical Hx/Surgical Hx HTN, CHF, DJD, asthma Subjective Information Pt seen sitting up in bed having lunch at time of visit. Pt stated appetite fine as usual. Per EMR, PO intake 75- 100%. Current Diet Order/ Nutrition Support cardiac Pertinent Medications colace, lasix, levaquin, kcl, senna Pertinent Labs 05/10 na 135, Cl 95, BUN 27, glucose 103 Nutritional Hx/Data Height 1.52 m Height (Calculated Centimeters) 152.4 Current Weight (lbs) 61.235 kg Weight (Calculated Kilograms) 61.2 Weight (Calculated Grams) 24384.0 [place] Body Weight 100 Body Mass Index (BMI) 26.4 Weight Status Overweight GI Symptoms GI Symptoms Constipation Last BM 05/07 constipated per EMR Difficult in: None Skin Integrity/Comment: 1~2+ pitting edema Current %PO Good (75-100%) Estimated Nutritional Goals BEE in Kcals: Using Current wt Calories/Kcals/Kg 23-27 Kcals Calculated 9942-6652 Protein: Using Current wt Protein g/k Protein Calculated 61 Fluid: ml fluid restriction per MD 1500ml Nutritional Problem 1. Problem Problem altered nutrition related labs Etiology electrolytes imbalance Signs/Symptoms: Na 135, Cl 95 Malnutrition Alert Is there a minimum of two criteria No selected? Query Text:Check all the applicable criteria. A minimum of two criteria are recommended for diagnosis of either severe or non-severe malnutrition. Malnutrition Related to Morbid Obesity Malnutrition related to morbid obesity No Intervention/Recommendation Comments 1. Continue with cardiac diet wtih fluid restriction as ordered. 2. Monitor PO intake, wt, labs and skin integrity 3. F/U as moderate risk in 3-5 days, 05/13-05/15 Expected Outcomes/Goals Expected Outcomes/Goals 1. PO intake to meet at least 75% of nutritional needs. 2. Wt stability, skin to remain intact, labs to approach WNL.
[2018-05-13] MEDS: Atorvastatin Calcium 10 MG TAB PO SCH (20:45)
[2018-05-14] MEDS: Albuterol/Ipratropium Neb 3 ML AERS HHN SCH ×3 (00:57→15:49)
[2018-05-14 05:51] LABS: BUN - UREA NITROGEN 22 mg/dL (7-25); CALCIUM SERUM 9.2 mg/dL (8.6-10.3); CARBON DIOXIDE 35.5 mEq/L (21.0-31.0); CHLORIDE 95 mEq/L (98-107); CREATININE - SERUM 0.8 mg/dL (0.6-1.2); GLUCOSE 104 mg/dL (70-105); POTASSIUM SERUM 3.5 mEq/L (3.5-5.1); SODIUM SERUM 136 mEq/L (136-145)
[2018-05-14 06:26] LABS: MEAN CELL VOLUME 94.7 fl (81-100); MEAN CORPUSCULAR HEMOGLOBIN 30.8 pg (27.0-31.0); MEAN CORPUSCULAR HGB CONC 32.5 pg (28.0-36.0)
[2018-05-14 06:30] LABS: HEMATOCRIT 45.3 % (41.0-60); HEMOGLOBIN 14.7 gm/dL (12-16); MEAN PLATELET VOLUME 11.2 fl; PLATELET COUNT 96 Th/cmm (150-400); RED BLOOD COUNT 4.78 Mil/cmm (3.80-5.20); RED CELL DISTRIBUTION WIDTH 15.7 % (11.5-20.0); WHITE BLOOD COUNT 7.3 Th/cmm (4.8-10.8)
[2018-05-14 07:02] LABS: BAND NEUTROPHILE 1 % (0-10); BASOPHIL 0 % (0-3); EOSINOPHIL 5 % (0-5); LYMPHOCYTE 16 % (20-50); MONOCYTE 13 % (2-10); NEUTROPHILS 65 % (40-80); PLATELET ESTIMATE DECREASED PLATELETS (NORMAL)
[2018-05-14] MEDS: Lactobacillus Rhamnosus GG 15 Billion CFU CAP.SPRINK PO SCH (09:29)
[2018-05-14] MEDS: Potassium Chloride 10 mEq ER Tab PO SCH (09:30)
[2018-05-14] MEDS: Therahoney Gel 42.5gm Tube TP SCH (12:00)
--- NOTE | 2018-05-14 23:20 | Discharge Summary ---
DATE OF DISCHARGE: 05/14/2018 FINAL DIAGNOSES: 1. Pneumonia. 2. Acute exacerbation of systolic congestive heart failure. 3. Chronic atrial fibrillation. 4. Hypertension. 5. Degenerative joint disease. 6. Mild dementia. REVIEW OF HISTORY: The patient is an 78-year-old female with long history of CHF, hypertension, chronic atrial fibrillation, presented to the Emergency Room with shortness of breath. Initial workup significant for pneumonia, acute exacerbation of CHF, admitted to the hospital, started on antibiotic, breathing treatment. Cardiac consultation obtained. PHYSICAL EXAMINATION: VITAL SIGNS: Temperature 98.8, heart rate 69, blood pressure 123/70. CHEST: Diminished breathing sound. HEART: S1, S2 normal. ABDOMEN: Soft, bowel sounds positive. EXTREMITIES: No edema. COURSE OF HOSPITALIZATION: During hospitalization, the patient was seen by shipper/receiver. On the April,, the patient still has shortness of breath. Sodium 136, potassium 3.3, BUN 30, creatinine 0.9. White blood 7.8, hemoglobin 14.4. The patient to continue her medication. On the April,, the patient has less shortness of breath, no chest pain, no fever, no chills, no nausea, no vomiting. Chest, mild diminished breathing sound. Heart, S1, S2 normal. Abdomen, soft, bowel sounds positive. On April,, her potassium is 2.8. The patient received 80 mEq of potassium. On April,, the patient feels well, no cough, no shortness of breath. Chest is clear to auscultation. Abdomen is soft, bowel sounds positive. Potassium 3.5. DISPOSITION: The patient was discharged home. Follow up with primary physician as outpatient. CONDITION ON DISCHARGE: Stable. MEDICATIONS: Follow discharge reconciliation. JOB# [id number]
== END 2018-05-14 19:30 | disposition home or self-care (01) | DRG 280 ==
LOC: ER 09:14 → ICU 10:00 → TELE 05-09 17:00
PROVIDERS: ADMIT Family Medicine; ATTEND Family Medicine
DX: I21.4 Non-ST elevation (NSTEMI) myocardial infarction (principal); J18.9 Pneumonia, unspecified organism; I50.43 Acute on chronic combined systolic (congestive) and diastolic (congestive) heart failure; N39.0 Urinary tract infection, site not specified; I48.2 Chronic atrial fibrillation; M19.90 Unspecified osteoarthritis, unspecified site; D69.6 Thrombocytopenia, unspecified; F32.9 Major depressive disorder, single episode, unspecified; M81.0 Age-related osteoporosis without current pathological fracture; I11.0 Hypertensive heart disease with heart failure; E78.5 Hyperlipidemia, unspecified; I25.10 Atherosclerotic heart disease of native coronary artery without angina pectoris; J45.909 Unspecified asthma, uncomplicated; K59.00 Constipation, unspecified; F03.90 Unspecified dementia, unspecified severity, without behavioral disturbance, psychotic disturbance, mood disturbance, and anxiety; Z91.81 History of falling; Z86.73 Personal history of transient ischemic attack (TIA), and cerebral infarction without residual deficits
CPT/HCPCS: 36415-UA; 70450-TC; 71045-TC; 80048-TC; 80053-TC; 81001-TC; 81003-TC; 82948-90; 83880-TC; 84443-TC; 84484-TC; 85007-TC; 85025-TC; 85610-TC; 85730-TC; 87086-90; 93005; 94760; 97530; J1940; J3480; J7040; X3904; Z7610